=== PATIENT | female | born 1995 | race Caucasian/White ===

== ENCOUNTER → 2016-11-14 | Outpatient (CLI) | payer BC ==
--- NOTE | 2016-11-14 12:33 | DIAGNOSTIC IMAGING REPORT ---
BILATERAL LOWER EXTREMITY VENOUS DOPPLER CLINICAL HISTORY: Shortness of breath. COMPARISON STUDY: No previous studies for comparison. TECHNIQUE: Sonography of the deep venous system of the bilateral lower extremities was performed. Compression and augmentation were evaluated. FINDINGS: The bilateral common femoral, superficial femoral and popliteal veins were compressible. Augmentation was normal. Flow was shown within the deep calf vessels. IMPRESSION: No evidence of deep venous thrombus within the bilateral lower extremities. Electronically signed by: Aashish Galindo M.D. 11/14/2016 12:32 PM Dictated Date/Time: 11/14/2016 12:32 PM
--- NOTE | 2016-11-14 12:35 | DIAGNOSTIC IMAGING REPORT ---
CHEST 2 VIEWS ROUTINE CLINICAL HISTORY: Shortness of breath. COMPARISON STUDY: No previous studies for comparison. FINDINGS: Lung volumes are normal. No consolidation is identified. No pneumothorax or pleural effusion is identified. Cardiomediastinal silhouette is normal. Patient is mildly rotated. Pulmonary vascularity is normal. IMPRESSION: No acute cardiopulmonary findings. Electronically signed by: Aashish Galindo M.D. 11/14/2016 12:34 PM Dictated Date/Time: 11/14/2016 12:33 PM
== END | disposition home or self-care (01) ==
LOC: C.ULTR 11:44
PROVIDERS: ATTEND Family Medicine
DX: R06.02 Shortness of breath (principal)

== ENCOUNTER 2019-06-27 00:15 | Inpatient (IN) ==
[2019-06-27] MEDS ORDERED: OXYTOCIN 30 UNITS/500 ML BAG IV PRN ×2 (00:48→11:50)
[2019-06-27 01:10] LABS: Hematocrit (blood only) 34.6 % (37-47); Hemoglobin 11.5 g/dL (12.0-16.0); Mean Corpuscular Hemoglobin 30.8 pg (25-34); Mean Corpuscular Volume 92.8 fL (80-100); Mean Platelet Volume 11.6 fL (7.4-10.4); Platelet Count 189 K/uL (130-400); RDW Coefficient of Variation 15.6 % (11.5-14.5); RDW Standard Deviation 52.7 fL (36.4-46.3); Red Blood Count 3.73 M/uL (4.2-5.4); White Blood Count 12.75 K/uL (4.8-10.8)
[2019-06-27 01:26] LABS: Mean Corpuscular Hgb Conc 33.2 g/dL (32-36)
[2019-06-27] MEDS: LACTATED RINGER'S 1,000 ML IV PRN ×2 (01:42→03:28)
[2019-06-27] MEDS ORDERED: ePHEDrine sulfate 50 MG/ML AMP ONE (01:56)
[2019-06-27] MEDS ORDERED: BUPIVACAINE 0.25% 30 ML VIAL ONE ×2 (01:56→08:53)
[2019-06-27] MEDS ORDERED: fentaNYL citrate 100 MCG/2 ML VIAL ONE (01:56)
[2019-06-27] MEDS ORDERED: fentaNYL 2MCG/ML ROPIV 1.25MG/ML 100 ML BAG EPI ONE (01:57)
--- NOTE | 2019-06-27 02:08 | Obstetrical Progress Note ---
Date of Service June 27, 2019 Assessment & Plan Admission and Anticipated Discharge Date Admission Date: June 27, 2019 Physical Exam Physical Exam: Admit Note 23 F P0000 at 40.5 weeks admitted with SROM clear fluid. FHT Cat 1. BP 146/105. Cervix 3/50/-2/vertex. Patient requesting epidural. Constitutional: WD/WN, vitals as above comfortable will check pre- eclampsia labs GBS is negative Results & Data ([facility]) Vital Signs (Past 12 Hours) Vital Signs Temp Pulse Resp BP 06/27/19 02:01 86 146/105 H 06/27/19 01:51 82 175/107 H 06/27/19 01:21 91 H 150/106 H 06/27/19 01:11 84 154/100 H 06/27/19 01:01 85 151/101 H 06/27/19 00:50 81 154/105 H 06/27/19 00:40 90 150/105 H 06/27/19 00:30 102 H 142/102 H 06/27/19 00:26 36.9 C 87 18 166/99 H
[2019-06-27 02:45] LABS: Alanine Aminotransferase 15 U/L (12-78); Albumin Level 2.6 gm/dl (3.4-5.0); Aspartate Aminotransferase 14 U/L (15-37); BUN Creatinine Ratio 9.4 (10-20); Bilirubin Direct < 0.1 mg/dl (0-0.2); Blood Urea Nitrogen 8 mg/dl (7-18); Carbon Dioxide 24 mmol/L (21-32); Chloride 109 mmol/L (98-107); Creatinine Clr Calc Pharmacy 139.5 ml/min; Est GFR (African American) 119.5; Est GFR (Non-African American) 103.1; Glucose 90 mg/dl (70-99); Potassium 4.1 mmol/L (3.5-5.1); Sodium 138 mmol/L (136-145); Uric Acid 5.2 mg/dl (2.6-7.2)
[2019-06-27 02:48] LABS: Albumin Globulin Ratio 0.7 (0.9-2); Alkaline Phosphatase 154 U/L (45-117); Bilirubin,Total 0.2 mg/dl (0.2-1); Globulin 3.9 gm/dl (2.5-4.0); Total Protein 6.5 gm/dl (6.4-8.2)
[2019-06-27] MEDS ORDERED: DiphenhydrAMINE HCL 50 MG/ML VIAL IV PRN (02:53)
[2019-06-27] MEDS ORDERED: ePHEDrine sulfate 50 MG/ML AMP IV PRN (02:53)
[2019-06-27] MEDS ORDERED: NALBUPHINE HCL INJ 10 MG/ML AMP IV PRN (02:53)
[2019-06-27] MEDS ORDERED: NALOXONE HCL 1 MG in SODIUM CHLORIDE 0.9% 1000ML 1,000 ML IV PRN (02:53)
[2019-06-27] MEDS ORDERED: fentaNYL 2MCG/ML ROPIV 1.25MG/ML 100 ML BAG EPI PRN (02:53)
[2019-06-27] MEDS ORDERED: NALOXONE HCL 0.4 MG/1 ML VIAL/CARP IV PRN (02:53)
--- NOTE | 2019-06-27 02:53 | Anesthesiology Consultation ---
Date of Service June 27, 2019 Assessment & Plan (1) Encounter for pre-operative examination: Chart Review Chart Review: Patient NOT seen in Pre Admission Testing and Acceptable Risk for Labor Epidural Consults Requested none ASA ASA2 Proposed Anesthesia Anesthesia Type: Labor Epidural Risk / Benefits Reviewed With: PT / POA / Parent / Guardian, Accepts Plan and Informed Consent Obtained History Height/Weight Height: 5 ft 11 in Weight: 96.615 kg Allergies Allergy/AdvReac Type Severity Reaction Status Date / Time AMOXICILLIAN Allergy Mild rash Uncoded 06/27/19 00:36 Medications Home Medications Medication Instructions Recorded Confirmed Last Taken Fiber Smooth 1 ea PO DAILY 06/27/19 06/27/19 06/26/19 08:00 PNV cmb#95-ferrous fumarate-FA 1 tab PO DAILY 06/27/19 06/27/19 06/26/19 08:00 [] cranberry 125 mg PO DAILY 06/27/19 06/27/19 06/26/19 08:00 levocetirizine 1 mg PO DAILY 06/27/19 06/27/19 06/26/19 08:00 Active Medications Generic Name Dose Route Start Last Admin Trade Name Freq PRN Reason Stop Dose Admin Lactated Ringer's 1,000 mls @ 125 mls/hr 06/27/19 00:48 06/27/19 02:37 Lr IV 06/29/19 00:47 125 mls/hr .Q8H PRN Infusion L&D Protocol Protocol NPO Date Last Intake of Fluids: 06/27/19 Time Last Intake of Fluids: 01:00 Date Last Intake of Solids: 06/26/19 Time Last Intake of Solids: 19:30 Past Medical History Medical History Allergic rhinitis Bronchospasm, exercise-induced Chronic rhinitis Migraine Exercise / Class Metabolic Activity II 4-5 Yardwork/Stairs/Walk up hill Past Anesthesia History No Hx of Anesthesia Complications and No Family Hx of Anesthesia Complications History of PONV No Hx of PONV and No Hx of Motion Sickness Social History Smoking Status: Never smoker Hx Alcohol Use: No Hx Substance Use: No Physical Exam Vital Signs Last Vital Signs Temp 36.9 C 06/27/19 02:29 Pulse 81 06/27/19 02:48 Resp 18 03/19/20 00:26 BP 141/93 H 06/27/19 02:48 Pulse Ox 99 06/27/19 02:48 ENMT Mouth: no dentition abnormality Thyromental Distance: > or= 3.5 Finger Breadths Mallampati Class: II Neck normal visual inspection Respiratory normal respiratory effort Auscultation: lungs clear to auscultation bilaterally Cardiovascular Rate/Rhythm: regular rate and regular rhythm Psychiatric Orientation: alert Testing Laboratory Results 06/27/19 00:59 06/27/19 02:07
[2019-06-27] MEDS ORDERED: Nursing to Pharmacy Communication ONE ×2 (03:15→05:48)
[2019-06-27 03:19] LABS: Protein Creatinine Ratio Urine 0.6 (0-0.2); Total Protein Urine Random 80.1 mg/dl (0-11.9)
[2019-06-27] MEDS ORDERED: ONDANSETRON INJ 2 MG/ML 2 ML VIAL IV PRN (07:59)
--- NOTE | 2019-06-27 08:09 | Obstetrical Progress Note ---
Date of Service June 27, 2019 Assessment & Plan Admission and Anticipated Discharge Date Admission Date: June 27, 2019 Subjective Met pt and FOB FHR; CAT1 Ctx ; 2-4mins VE; 10/-1 Anticipate VD Results & Data ([facility]) Vital Signs (Past 12 Hours) Vital Signs Temp Pulse Resp BP Pulse Ox 06/27/19 07:58 94 H 97 06/27/19 07:55 87 151/98 H 06/27/19 07:53 95 H 98 06/27/19 07:48 96 H 96 06/27/19 07:43 84 99 06/27/19 07:41 83 154/90 H 06/27/19 07:38 82 96 06/27/19 07:33 87 94 06/27/19 07:28 94 H 97 06/27/19 07:25 86 131/104 H 06/27/19 07:23 97 H 97 06/27/19 07:21 101 H 90 06/27/19 07:18 92 H 96 06/27/19 07:13 86 97 06/27/19 07:10 89 142/90 H 06/27/19 07:08 84 98 06/27/19 07:07 36.8 C 20 06/27/19 07:06 84 92 06/27/19 07:03 86 98 06/27/19 07:01 18 06/27/19 06:58 82 97 06/27/19 06:55 82 138/73 06/27/19 06:53 89 97 06/27/19 06:48 89 97 06/27/19 06:43 85 96 06/27/19 06:42 83 140/79 06/27/19 06:41 86 94 06/27/19 06:38 82 97 06/27/19 06:33 81 97 06/27/19 06:28 81 96 06/27/19 06:27 82 93 06/27/19 06:25 78 133/80 06/27/19 06:23 80 96 06/27/19 06:21 18 06/27/19 06:18 81 97 06/27/19 06:16 93 H 92 06/27/19 06:13 79 97 06/27/19 06:11 79 131/74 06/27/19 06:08 82 97 06/27/19 06:04 96 H 91 06/27/19 06:03 91 H 96 06/27/19 06:01 18 06/27/19 05:58 85 97 06/27/19 05:56 79 126/90 06/27/19 05:53 83 97 06/27/19 05:48 81 97 06/27/19 05:45 18 06/27/19 05:43 82 96 06/27/19 05:40 36.9 C 84 18 137/75 06/27/19 05:38 88 98 06/27/19 05:33 98 H 97 06/27/19 05:28 87 97 06/27/19 05:24 90 157/89 H 06/27/19 05:23 79 97 06/27/19 05:18 83 97 06/27/19 05:13 103 H 97 06/27/19 05:10 96 H 141/98 H 06/27/19 05:08 90 97 06/27/19 05:03 96 H 96 06/27/19 05:00 18 06/27/19 04:58 86 97 06/27/19 04:55 90 142/92 H 06/27/19 04:53 81 97 06/27/19 04:48 81 99 06/27/19 04:45 18 06/27/19 04:43 88 99 06/27/19 04:39 96 H 151/92 H 06/27/19 04:38 83 98 06/27/19 04:33 78 98 06/27/19 04:28 76 98 06/27/19 04:26 75 158/98 H 06/27/19 04:23 79 99 06/27/19 04:21 36.9 C 86 18 156/92 H 06/27/19 04:18 75 98 06/27/19 04:13 77 98 06/27/19 04:11 77 167/100 H 06/27/19 04:08 77 98 06/27/19 04:03 77 98 06/27/19 04:00 18 06/27/19 03:58 82 99 06/27/19 03:56 78 143/96 H 06/27/19 03:53 84 99 06/27/19 03:48 94 H 98 06/27/19 03:45 18 06/27/19 03:43 88 98 06/27/19 03:41 94 H 121/77 03/19/20 03:38 76 98 06/26/20 03:33 78 100 20 03:30 18 20 03:28 103 H 99 20 03:25 83 133/69 20 03:23 82 100 20 03:18 84 98 06/27/19 03:15 18 06/27/19 03:13 79 100 06/27/19 03:09 80 131/85 06/27/19 03:08 93 H 100 06/27/19 03:04 95 H 154/73 H 06/27/19 03:03 83 100 06/27/19 03:00 18 06/27/19 02:59 78 136/81 06/27/19 02:58 76 100 06/27/19 02:55 18 06/27/19 02:54 73 137/80 06/27/19 02:53 85 99 06/27/19 02:50 18 06/27/19 02:48 81 141/93 H 99 06/27/19 02:46 91 H 138/85 06/27/19 02:45 18 06/27/19 02:44 86 148/95 H 06/27/19 02:43 78 98 06/27/19 02:42 77 163/79 H 06/27/19 02:40 85 18 160/79 H 06/27/19 02:38 80 95 06/27/19 02:34 91 H 86 L 06/27/19 02:33 95 H 99 06/27/19 02:31 87 190/101 H 06/27/19 02:29 36.9 C 06/27/19 02:22 82 143/98 H 06/27/19 02:12 74 162/105 H 06/27/19 02:01 86 146/105 H 20 01:51 82 175/107 H 20 01:21 91 H 150/106 H 20 01:11 84 154/100 H 20 01:01 85 151/101 H 06/27/19 00:50 81 154/105 H 20 00:40 90 150/105 H 20 00:30 102 H 142/102 H 06/27/19 00:26 36.9 C 87 18 166/99 H
--- NOTE | 2019-06-27 10:47 | Obstetrical Progress Note ---
Date of Service June 27, 2019 Assessment & Plan Admission and Anticipated Discharge Date Admission Date: June 27, 2019 Subjective Pt doing well Fully dilated /2+ Pushing effectively CAT1 Anticipate VD Results & Data ([facility]) Vital Signs (Past 12 Hours) Vital Signs Temp Pulse Resp BP Pulse Ox 06/27/19 10:43 89 99 06/27/19 10:40 91 H 141/99 H 06/27/19 10:38 91 H 100 06/27/19 10:36 88 91 06/27/19 10:33 105 H 91 06/27/19 10:30 109 H 89 L 06/27/19 10:28 92 H 97 06/27/19 10:24 89 134/76 06/27/19 10:23 98 H 86 L 06/27/19 10:18 98 H 95 06/27/19 10:13 114 H 98 06/27/19 10:11 99 H 94 06/27/19 10:08 94 H 96 06/27/19 10:05 106 H 91 06/27/19 10:03 96 H 99 06/27/19 10:00 100 H 93 06/27/19 09:58 95 H 133/78 99 06/27/19 09:54 92 H 90 06/27/19 09:53 85 99 06/27/19 09:48 84 97 06/27/19 09:43 87 99 06/27/19 09:39 83 121/72 06/27/19 09:38 85 98 06/27/19 09:36 89 93 06/27/19 09:33 78 98 06/27/19 09:28 78 95 06/27/19 09:27 81 94 06/27/19 09:24 81 134/75 06/27/19 09:23 79 97 06/27/19 09:18 87 98 06/27/19 09:13 85 97 06/27/19 09:10 84 128/68 06/27/19 09:08 88 95 06/27/19 09:05 86 93 06/27/19 09:03 85 96 06/27/19 09:02 36.8 C 20 06/27/19 08:59 86 94 06/27/19 08:58 84 95 06/27/19 08:54 88 142/83 H 06/27/19 08:53 84 96 03/19/20 08:50 92 H 92 19/20 08:48 87 97 19/20 08:43 84 96 19/20 08:41 86 145/76 H 19/20 08:38 90 96 19/20 08:37 87 94 19/20 08:33 90 97 19/20 08:29 90 94 19/20 08:28 81 97 19/20 08:25 88 155/95 H 1920 08:23 82 95 19/20 08:22 81 93 19/20 08:18 85 96 19/20 08:13 93 H 97 19/20 08:09 84 147/104 H 06/26/20 08:08 82 96 20 08:03 86 97 06/26/20 07:58 94 H 97 20 07:55 87 151/98 H 06/26/20 07:53 95 H 98 20 07:48 96 H 96 20 07:43 84 99 06/26/20 07:41 83 154/90 H 19/20 07:38 82 96 19/20 07:33 87 94 19/20 07:28 94 H 97 06/26/20 07:25 86 131/104 H 06/26/20 07:23 97 H 97 06/26/20 07:21 101 H 90 06/26/20 07:18 92 H 96 06/26/20 07:13 86 97 19/20 07:10 89 142/90 H 06/26/20 07:08 84 98 06/26/20 07:07 36.8 C 20 20 07:06 84 92 19/20 07:03 86 98 19/20 07:01 18 19/20 06:58 82 97 0319/20 06:55 82 138/73 19/20 06:53 89 97 19/20 06:48 89 97 19/20 06:43 85 96 19/20 06:42 83 140/79 0319/20 06:41 86 94 19/20 06:38 82 97 19/20 06:33 81 97 19/20 06:28 81 96 06/27/19 06:27 82 93 06/27/19 06:25 78 133/80 06/27/19 06:23 80 96 06/27/19 06:21 18 06/27/19 06:18 81 97 06/27/19 06:16 93 H 92 06/27/19 06:13 79 97 06/27/19 06:11 79 131/74 06/27/19 06:08 82 97 06/27/19 06:04 96 H 91 06/27/19 06:03 91 H 96 06/27/19 06:01 18 06/27/19 05:58 85 97 06/27/19 05:56 79 126/90 06/27/19 05:53 83 97 06/27/19 05:48 81 97 06/27/19 05:45 18 06/27/19 05:43 82 96 06/27/19 05:40 36.9 C 84 18 137/75 06/27/19 05:38 88 98 06/27/19 05:33 98 H 97 06/27/19 05:28 87 97 06/27/19 05:24 90 157/89 H 06/27/19 05:23 79 97 06/27/19 05:18 83 97 06/27/19 05:13 103 H 97 06/27/19 05:10 96 H 141/98 H 06/27/19 05:08 90 97 06/27/19 05:03 96 H 96 06/27/19 05:00 18 06/27/19 04:58 86 97 06/27/19 04:55 90 142/92 H 06/27/19 04:53 81 97 06/27/19 04:48 81 99 06/27/19 04:45 18 06/27/19 04:43 88 99 06/27/19 04:39 96 H 151/92 H 06/27/19 04:38 83 98 06/27/19 04:33 78 98 06/27/19 04:28 76 98 06/27/19 04:26 75 158/98 H 06/27/19 04:23 79 99 06/27/19 04:21 36.9 C 86 18 156/92 H 06/27/19 04:18 75 98 06/27/19 04:13 77 98 06/27/19 04:11 77 167/100 H 06/27/19 04:08 77 98 06/27/19 04:03 77 98 06/27/19 04:00 18 06/27/19 03:58 82 99 06/27/19 03:56 78 143/96 H 06/27/19 03:53 84 99 06/27/19 03:48 94 H 98 06/27/19 03:45 18 06/27/19 03:43 88 98 06/27/19 03:41 94 H 121/77 06/27/19 03:38 76 98 06/27/19 03:33 78 100 06/27/19 03:30 18 06/27/19 03:28 103 H 99 06/27/19 03:25 83 133/69 06/27/19 03:23 82 100 06/27/19 03:18 84 98 06/27/19 03:15 18 06/27/19 03:13 79 100 06/27/19 03:09 80 131/85 06/27/19 03:08 93 H 100 06/27/19 03:04 95 H 154/73 H 06/27/19 03:03 83 100 06/27/19 03:00 18 06/27/19 02:59 78 136/81 06/27/19 02:58 76 100 06/27/19 02:55 18 06/27/19 02:54 73 137/80 06/27/19 02:53 85 99 06/27/19 02:50 18 06/27/19 02:48 81 141/93 H 99 06/27/19 02:46 91 H 138/85 06/27/19 02:45 18 06/27/19 02:44 86 148/95 H 06/27/19 02:43 78 98 06/27/19 02:42 77 163/79 H 06/27/19 02:40 85 18 160/79 H 06/27/19 02:38 80 95 06/27/19 02:34 91 H 86 L 06/27/19 02:33 95 H 99 06/27/19 02:31 87 190/101 H 06/27/19 02:29 36.9 C 06/27/19 02:22 82 143/98 H 06/27/19 02:12 74 162/105 H 06/27/19 02:01 86 146/105 H 06/27/19 01:51 82 175/107 H 06/27/19 01:21 91 H 150/106 H 06/27/19 01:11 84 154/100 H 06/27/19 01:01 85 151/101 H 06/27/19 00:50 81 154/105 H 06/27/19 00:40 90 150/105 H 06/27/19 00:30 102 H 142/102 H 06/27/19 00:26 36.9 C 87 18 166/99 H
[2019-06-27] MEDS ORDERED: miSOPROStoL 200 MCG TAB ONE (11:20)
[2019-06-27] MEDS ORDERED: HYDROCORTISONE ACETATE 25 MG SUPP PR PRN (11:50)
[2019-06-27] MEDS ORDERED: bisacodyL 10 MG SUPP PR PRN (11:50)
[2019-06-27] MEDS ORDERED: miSOPROStoL 200 MCG TAB PR ONE (11:50)
[2019-06-27] MEDS ORDERED: SUPERCREAM 0.870% 15 GM JAR EXT PRN (11:50)
[2019-06-27] MEDS ORDERED: DIPHTHERIA/TETANUS/PERTUSSIS 0.5 ML SYR/VIAL IM ONE (11:50)
--- NOTE | 2019-06-27 12:09 | Delivery Summary ---
DATE OF OPERATION: 06/27/2019 The patient delivered a live infant in left occiput anterior presentation. There was loose nuchal cord which was easily reduced. Cord was clamped and cut after 1 minute. Cord blood was obtained. Placenta spontaneously delivered. Inspection of the perineum showed a second-degree midline laceration as well as a labial laceration tear on the right labia. Both are repaired with 2-0 and 3-0 respectively. There was good hemostasis post repair. Rectal exam post repair showed good sphincter tone, no sutures are palpated in the rectum. Estimated blood loss is 550 mL. Baby and mother are doing well in recovery. I attest to the content of the Intraoperative Record and any orders documented therein. Any exception s are noted below.
--- NOTE | 2019-06-27 12:18 | Anesthesia Procedure Note ---
Date of Service June 27, 2019 Anesthesia Post Epidural Note Vital Signs Vital Signs: Temp Pulse Resp BP Pulse Ox 36.8 C 97 H 20 135/88 100 06/27/19 09:02 06/27/19 12:09 06/27/19 09:02 06/27/19 12:09 06/27/19 11:08 Notes Mental Status: alert / awake / arousable and participated in evaluation Patient Amnestic to Procedure: No Nausea / Vomiting: adequately controlled Pain: adequately controlled Airway Patency, RR, SpO2: stable & adequate BP & HR: stable & adequate Hydration State: stable & adequate Neuraxial Anesthesia: was administered and sensory block is resolving Anesthetic Complications: no major complications apparent and Pt Satisfied with anesthetic care Epidural: Removed without complications and With tip intact
[2019-06-27] MEDS: IBUPROFEN 600 MG TAB PO PRN ×2 (15:59→19:58)
[2019-06-27] MEDS: BENZOCAINE 20% AER SPR 82.5 GM CAN EXT PRN (16:01)
[2019-06-27] MEDS: DOCUSATE SODIUM 100 MG CAP PO SCH (21:17)
[2019-06-27] MEDS ORDERED: COUGH DROP (SUGAR FREE) LOZ 24 LOZ/1 BOX BUCCAL ONE (23:19)
[2019-06-28] MEDS: IBUPROFEN 600 MG TAB PO PRN ×5 (00:16→17:54)
[2019-06-28] MEDS: DOCUSATE SODIUM 100 MG CAP PO SCH ×2 (07:33→21:06)
[2019-06-28] MEDS: PRENATAL VITAMIN 1 TAB PO SCH (07:33)
[2019-06-28] MEDS: FERROUS SULFATE 325 MG TAB PO SCH (07:33)
--- NOTE | 2019-06-28 10:05 | Obstetrical Progress Note ---
Date of Service June 28, 2019 Assessment & Plan Admission and Anticipated Discharge Date Admission Date: June 27, 2019 Subjective doing well passing gas natalya diet Physical Exam Constitutional: WD/WN, vitals as above comfortable no edema neg Bart's tent d/c in AM Results & Data ([facility]) Vital Signs (Past 12 Hours) Vital Signs Temp Pulse Pulse Resp BP BP Pulse Ox 06/28/19 07:51 36.8 C 76 18 131/89 151/97 H 96 06/28/19 03:15 36.7 C 74 18 130/84 06/28/19 00:10 36.8 C 73 20 128/88 Laboratory Results 06/27/19 06/27/19 06/27/19 00:59 01:55 02:07 WBC 12.75 H RBC 3.73 L Hgb 11.5 L Hct 34.6 L MCV 92.8 MCH 30.8 MCHC 33.2 RDW Std Deviation 52.7 H RDW Coeff of Anisa 15.6 H Plt Count 189 MPV 11.6 H Sodium 138 Potassium 4.1 Chloride 109 H Carbon Dioxide 24 Anion Gap 5.0 BUN 8 Creatinine 0.81 Est Cr Clr Drug Dosing 139.5 Est GFR ( Amer) 119.5 Est GFR (Non-Af Amer) 103.1 BUN/Creatinine Ratio 9.4 L Glucose 90 Uric Acid 5.2 Calcium 9.0 Total Bilirubin 0.2 Direct Bilirubin < 0.1 AST 14 L ALT 15 Alkaline Phosphatase 154 H Lactate Dehydrogenase Total Protein 6.5 Albumin 2.6 L Globulin 3.9 Albumin/Globulin Ratio 0.7 L Ur Random Creatinine 131.0 U Random Total Protein 80.1 H Protein/Creatinin Ratio 0.6 H 06/27/19 02:07 WBC RBC Hgb Hct MCV MCH MCHC RDW Std Deviation RDW Coeff of Anisa Plt Count MPV Sodium Potassium Chloride Carbon Dioxide Anion Gap BUN Creatinine Est Cr Clr Drug Dosing Est GFR ( Amer) Est GFR (Non-Af Amer) BUN/Creatinine Ratio Glucose Uric Acid Calcium Total Bilirubin Direct Bilirubin AST ALT Alkaline Phosphatase Lactate Dehydrogenase 156 Total Protein Albumin Globulin Albumin/Globulin Ratio Ur Random Creatinine U Random Total Protein Protein/Creatinin Ratio
[2019-06-28] MEDS: ACETAMINOPHEN 325 MG TAB PO PRN ×2 (15:23→21:05)
[2019-06-28] MEDS ORDERED: bisacodyL 5 MG TABEC PO SCH (20:00)
[2019-06-28] MEDS: LABETALOL HCL 100 MG TAB PO SCH (21:11)
[2019-06-28] MEDS ORDERED: LABETALOL HCL 100 MG TAB PO ONE (21:17)
[2019-06-29] MEDS: IBUPROFEN 600 MG TAB PO PRN ×4 (04:06→20:40)
--- NOTE | 2019-06-29 07:28 | Obstetrical Progress Note ---
Date of Service June 29, 2019 Assessment & Plan Admission and Anticipated Discharge Date Admission Date: June 27, 2019 Subjective doing well ambulating well tolerating diet passing gas Physical Exam Constitutional: WD/WN, vitals as above comfortable abdomen soft and non- tender no edema neg Bart's Results & Data ([facility]) Vital Signs (Past 12 Hours) Vital Signs Temp Pulse Pulse Resp BP BP Pulse Ox 06/29/19 04:45 36.7 C 68 16 133/84 99 06/29/19 04:00 158/95 H 06/28/19 23:00 36.8 C 69 18 136/92 97 06/28/19 22:30 65 158/97 H 06/28/19 20:45 37.2 C 64 18 156/104 H 158/105 H 97 Laboratory Results Laboratory Results - last 72 hr 06/27/19 06/27/19 06/27/19 00:59 01:55 02:07 WBC 12.75 H RBC 3.73 L Hgb 11.5 L Hct 34.6 L MCV 92.8 MCH 30.8 MCHC 33.2 RDW Std Deviation 52.7 H RDW Coeff of Anisa 15.6 H Plt Count 189 MPV 11.6 H Sodium 138 Potassium 4.1 Chloride 109 H Carbon Dioxide 24 Anion Gap 5.0 BUN 8 Creatinine 0.81 Est Cr Clr Drug Dosing 139.5 Est GFR ( Amer) 119.5 Est GFR (Non-Af Amer) 103.1 BUN/Creatinine Ratio 9.4 L Glucose 90 Uric Acid 5.2 Calcium 9.0 Total Bilirubin 0.2 Direct Bilirubin < 0.1 AST 14 L ALT 15 Alkaline Phosphatase 154 H Lactate Dehydrogenase Total Protein 6.5 Albumin 2.6 L Globulin 3.9 Albumin/Globulin Ratio 0.7 L Ur Random Creatinine 131.0 U Random Total Protein 80.1 H Protein/Creatinin Ratio 0.6 H 06/27/19 02:07 WBC RBC Hgb Hct MCV MCH MCHC RDW Std Deviation RDW Coeff of Anisa Plt Count MPV Sodium Potassium Chloride Carbon Dioxide Anion Gap BUN Creatinine Est Cr Clr Drug Dosing Est GFR ( Amer) Est GFR (Non-Af Amer) BUN/Creatinine Ratio Glucose Uric Acid Calcium Total Bilirubin Direct Bilirubin AST ALT Alkaline Phosphatase Lactate Dehydrogenase 156 Total Protein Albumin Globulin Albumin/Globulin Ratio Ur Random Creatinine U Random Total Protein Protein/Creatinin Ratio
[2019-06-29] MEDS: DOCUSATE SODIUM 100 MG CAP PO SCH ×2 (08:25→20:40)
[2019-06-29] MEDS: PRENATAL VITAMIN 1 TAB PO SCH (08:25)
[2019-06-29] MEDS: FERROUS SULFATE 325 MG TAB PO SCH (08:25)
[2019-06-29] MEDS: LABETALOL HCL 100 MG TAB PO SCH (08:26)
[2019-06-29] MEDS ORDERED: LABETALOL HCL 100 MG TAB PO ONE (10:31)
[2019-06-29 11:04] LABS: Basophils # (auto) 0.01 K/uL (0-0.2); Basophils % (auto) 0.1 %; Eosinophils # (auto) 0.05 K/uL (0-0.5); Eosinophils % (auto) 0.5 %; Hematocrit (blood only) 30.1 % (37-47); Hemoglobin 9.9 g/dL (12.0-16.0); Immature Granulocytes # (auto) 0.02 K/uL (0.00-0.02); Immature Granulocytes % (auto) 0.2 %; Lymphocytes # (auto) 1.65 K/uL (1.2-3.4); Lymphocytes % (auto) 16.8 %; Mean Corpuscular Hemoglobin 30.6 pg (25-34); Mean Corpuscular Volume 92.9 fL (80-100); Mean Platelet Volume 10.8 fL (7.4-10.4); Monocytes # (auto) 0.49 K/uL (0.11-0.59); Neutrophils # (auto) 7.58 K/uL (1.4-6.5); Neutrophils % (auto) 77.4 %; Platelet Count 158 K/uL (130-400); RDW Coefficient of Variation 15.9 % (11.5-14.5); Red Blood Count 3.24 M/uL (4.2-5.4)
[2019-06-29 11:09] LABS: Mean Corpuscular Hgb Conc 32.9 g/dL (32-36)
[2019-06-29 11:32] LABS: Albumin Level 2.3 gm/dl (3.4-5.0); BUN Creatinine Ratio 11.8 (10-20); Calcium 8.9 mg/dl (8.5-10.1); Creatinine Clr Calc Pharmacy 166.2 ml/min; Est GFR (African American) 143.9; Est GFR (Non-African American) 124.2; Potassium 4.4 mmol/L (3.5-5.1)
[2019-06-29 11:35] LABS: Albumin Globulin Ratio 0.7 (0.9-2); Bilirubin,Total 0.3 mg/dl (0.2-1); Globulin 3.4 gm/dl (2.5-4.0); Total Protein 5.7 gm/dl (6.4-8.2)
--- NOTE | 2019-06-29 13:32 | Obstetrical Progress Note ---
Date of Service June 29, 2019 Assessment & Plan Admission and Anticipated Discharge Date Admission Date: June 27, 2019 Subjective Pt doing well BP remains elevated on labetalol 100mg. denies headache, SOB,RUQ pain PIH labs -Nml Plan Cancelled disch Inc labetalol to 200mg BID discussed plan with pt'pt agrees Results & Data ([facility]) Vital Signs (Past 12 Hours) Vital Signs Temp Pulse Pulse Resp BP BP Pulse Ox 06/29/19 12:55 69 153/100 H 06/29/19 10:20 162/111 H 153/107 H 06/29/19 08:00 36.8 C 79 20 156/96 H 06/29/19 04:45 36.7 C 68 16 133/84 99 06/29/19 04:00 158/95 H
[2019-06-29] MEDS: NIFEdipine 10 MG CAP PO SCH ×2 (17:56→20:39)
[2019-06-29] MEDS: LABETALOL HCL 200 MG TAB PO SCH (20:40)
[2019-06-30] MEDS: NIFEdipine 10 MG CAP PO SCH ×3 (00:32→08:08)
[2019-06-30] MEDS: IBUPROFEN 600 MG TAB PO PRN (00:32)
[2019-06-30] MEDS: ACETAMINOPHEN 325 MG TAB PO PRN (08:08)
[2019-06-30] MEDS: PRENATAL VITAMIN 1 TAB PO SCH (08:08)
[2019-06-30] MEDS: DOCUSATE SODIUM 100 MG CAP PO SCH (08:08)
[2019-06-30] MEDS: FERROUS SULFATE 325 MG TAB PO SCH (08:08)
--- NOTE | 2019-06-30 08:12 | Consultation ---
Date of Consultation June 30, 2019 Assessment & Plan (1) hypertension: Likely due to hospital setting, anxiety or NSAID use Pt BP well controlled outpt Labs reviewed, LFT, plt, renal fxn, LDH WNL pt asymptomatic agree with labetalol and Procardia per OB recommend continue labetolol 200mg BID Change Procardia to XL at discharge 30mg daily hold parameters of SBP < 130 and HR < 60 would limit NSAID use as much as possible, use APAP instead close follow up with PCP to determine necessity of nursing home antihypertensive med (2) Chronic rhinitis: spoke to Dr. Ashton recommends claritin daily Disposition: medically stable from our end to D/C to home today Follow up: PCP Dr. Mesa upon discharge as well as approp OB follow up Pt was seen and examined in collaboration with Dr. Jamison, please see addendum Thank you for this consultation. We will follow the patient with you during their hospital stay. You can reach a member of the [facility] 31/10 via pager @ [phone]. Supervising Physician Co-Signing Physician Notes Attending addendum Patient was seen and examined in [facility] unit She is status post normal delivery on of this month and noted to have high blood pressure and was admitted 04/30 of this month She denies any symptoms related to high blood pressure She has been feeling fine during examination On examination No distress at rest Hemodynamically stable with blood pressure noted 135/82 at 4:20 AM Chest-clear to auscultate bilaterally Heart-S1-S2, no murmur Abdomen-distended, soft, bowel sounds present Extremities-trace to no edema 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 Ashton Reason for Consultation: hypertension Attending Physician: Oscar Morales MD History of Present Illness This is a 22-year-old female who has a significant past medical history of chronic rhinitis and migraines who underwent vaginal delivery on 06/27/2019. She tolerated the procedure well with an EBL of 550 mL. We have been consulted for hypertension. Currently she denies any headache, visual changes, dizziness, chest pain, shortness of breath. Approximately 2 days ago she did admit to having fluttering and overall feeling anxious after the administration of labetalol. She denies any prior history of hypertension. This is her first delivery. She further denies any fever, chills, sweats, syncope, nausea, vomiting, abdominal pain. She does have mild cramping for which she is taking NSAID for. She is having mild dysuria as well as blood in urine secondary to . Moving her bowels without difficulty. Blood pressures have been elevated since admission. On 06/28 she had pressures as high as 172/115. She has been asymptomatic. Dr. Ashton started labetalol 100 mg without relief. It was increased to 200 mg twice daily. Due to no significant improvement with Procardia was added every 4 hours. During my evaluation her blood pressure was 150 systolically over 98. She had lab work drawn yesterday which revealed H&H 9.9 and 30.1, JVC 9.80, platelet 158, CMP relatively unremarkable including normal LFTs, LDH. Her only other complaint right now is having allergy-like symptoms with sinus congestion and rhinorrhea. She denies cough. She chronically takes levocetirizine at HS but is requesting something additional. Allergies Allergy/AdvReac Type Severity Reaction Status Date / Time amoxicillin Allergy Mild Rash Verified 06/27/19 08:10 Home Medications Home Medications Medication Instructions Recorded Confirmed Type Fiber Smooth 1 ea PO DAILY 06/27/19 06/27/19 History PNV cmb#95-ferrous fumarate-FA 1 tab PO DAILY 06/27/19 06/27/19 History [] cranberry 125 mg PO DAILY 06/27/19 06/27/19 History levocetirizine 1 mg PO DAILY 06/27/19 06/27/19 History ibuprofen 600 mg PO Q4H #30 tab 06/29/19 Rx labetalol 100 mg PO BID #30 tab 06/29/19 Rx labetalol 200 mg PO BID #30 tab 06/30/19 Rx nifedipine [Procardia XL] 30 mg PO DAILY #30 tab 06/30/19 Rx Patient History Medical History (Updated 06/30/19 @ 08:21 by Bindu Tate PA-C) Allergic rhinitis Bronchospasm, exercise-induced Chronic rhinitis Migraine Surgical History (Updated 06/30/19 @ 08:19 by Bindu Tate PA-C) History of wisdom tooth extraction Hx of arthroscopic knee surgery Family History Uncle Myocardial infarction, Onset Age: 41 Diabetes Mother Cervical ca Social History Preferred Language: [place]orese Communication Ability: Effective Glove Cleaner Required: No Beliefs That Will Affect Care: None marital status: Current Living Situation: Spouse Other Information That Helps Us Care for You: No Feels Safe at Home: Yes Safety Concerns: Feels Safe At This Time Smoking Status: Never smoker Hx Alcohol Use: No Hx Substance Use: No Review of Systems Review of Systems: All systems reviewed & are unremarkable except as noted in HPI & below Physical Exam 2 Physical Exam: Constitutional: WD/WN, vitals as above, NAD, sitting up in bed, pleasant, conversing easily Head: Normocephalic, Atraumatic Eyes: PERRL, conjunctivae normal, anicteric sclerae ENMT: external ear and nose normal, oropharynx normal Neck: trachea midline, no thyromegaly normal visual inspection Respiratory: normal respiratory effort, lungs clear to auscultation, no wheeze, rales, rhonchi. Normal insp/exp effort, no accessory muscle use Cardiovascular: RRR, no murmur, no edema Vessels: no JVD or carotid bruit Chest: normal inspection of chest Abdomen: Striae noted on lower abdomen, normal bowel sounds, soft, nontender, no hepatosplenomegaly Musculoskeletal: no cyanosis or clubbing, extremities motor strength 5/5 Skin: no rashes, warm and dry normal turgor Neurologic: PERRL, EOMI, accommodation nl, no face palsy, no dysarthria CN's II-XI intact bilaterally and moves all extremities Psychiatric: A+Ox3, euthymic affect Lymphatic: no cervical or axillary lymphadenopathy : deferred Results & Data ([facility]) Vital Signs (Past 12 Hours) Vital Signs Temp Pulse Pulse Resp BP BP Pulse Ox 06/30/19 04:20 71 135/82 06/30/19 00:30 62 147/90 H 06/29/19 23:15 36.6 C 65 18 153/94 H 98 03/21/20 22:00 150/98 H 06/29/19 20:40 65 69 164/105 H 172/115 H Laboratory Results Short CBC 06/29/19 Range/Units 10:47 WBC 9.80 (4.8-10.8) K/uL Hgb 9.9 L (12.0-16.0) g/dL Hct 30.1 L (37-47) % Plt Count 158 (130-400) K/uL BMP 06/29/19 10:47 Sodium 141 Potassium 4.4 Chloride 110 H Carbon Dioxide 27 BUN 8 Creatinine 0.68 Glucose 71 Calcium 8.9 Liver Function 06/29/19 Range/Units 10:47 Total Bilirubin 0.3 (0.2-1) mg/dl AST 22 (15-37) U/L ALT 17 (12-78) U/L Alkaline Phosphatase 101 (45-117) U/L Albumin 2.3 L (3.4-5.0) gm/dl Medications Administered Acetaminophen (Tylenol) 650 mg PO Q6H PRN PRN Reason: Pain/VILLANUEVA/Fever Stop: 07/27/19 11:49 Last Admin: 06/30/19 08:08 Dose: 650 mg Documented by: [id number] Admin: 06/28/19 21:05 Dose: 650 mg Documented by: [id number] Admin: 06/28/19 15:23 Dose: 650 mg Documented by: [id number] Benzocaine (Dermoplast Pain Relieving [place]) 1 appln EXT PRN PRN PRN Reason: Perineal Discomfort Stop: 07/27/19 11:49 Last Admin: 06/27/19 16:01 Dose: 1 appln Documented by: [id number] Cocaine HCl (Supercream 0.870%) 1 gm EXT BID PRN PRN Reason: Hemorrhoidal Inflammation Stop: 07/11/19 11:49 Last Admin: 06/27/19 16:00 Dose: 1 gm Documented by: [id number] Docusate Sodium (Colace) 100 mg PO DAILY@,21 ANABELLA Stop: 07/27/19 20:59 Last Admin: 06/30/19 08:08 Dose: 100 mg Documented by: [id number] Admin: 06/29/19 20:40 Dose: 100 mg Documented by: [id number] Admin: 06/29/19 08:25 Dose: 100 mg Documented by: [id number] Admin: 06/28/19 21:06 Dose: 100 mg Documented by: [id number] Admin: 06/28/19 07:33 Dose: 100 mg Documented by: [id number] Admin: 06/27/19 21:17 Dose: 100 mg Documented by: [id number] Ferrous Sulfate (Feosol) 325 mg PO DAILY@08 ANABELLA Stop: 07/28/19 07:59 Last Admin: 06/30/19 08:08 Dose: 325 mg Documented by: [id number] Admin: 06/29/19 08:25 Dose: 325 mg Documented by: [id number] Admin: 06/28/19 07:33 Dose: 325 mg Documented by: [id number] Oxytocin (Pitocin) 30 units in 500 mls @ 333.333 mls/hr IV .Q1H30M PRN; Protocol PRN Reason: Bleeding Control Stop: 07/27/19 00:47 Last Admin: 06/27/19 11:20 Dose: 59.94 units/hr, 999 mls/hr Documented by: [id number] Cosigned by: [id number] Ibuprofen (Motrin) 600 mg PO Q4H PRN PRN Reason: Pain/VILLANUEVA/Cramping/Fever Stop: 07/27/19 11:49 Last Admin: 06/30/19 00:32 Dose: 600 mg Documented by: [id number] Admin: 06/29/19 20:40 Dose: 600 mg Documented by: [id number] Admin: 06/29/19 15:27 Dose: 600 mg Documented by: [id number] Admin: 06/29/19 08:24 Dose: 600 mg Documented by: [id number] Admin: 06/29/19 04:06 Dose: 600 mg Documented by: [id number] Admin: 06/28/19 17:54 Dose: 600 mg Documented by: [id number] Admin: 06/28/19 12:36 Dose: 600 mg Documented by: [id number] Admin: 06/28/19 07:33 Dose: 600 mg Documented by: [id number] Admin: 06/28/19 04:07 Dose: 600 mg Documented by: [id number] Admin: 06/28/19 00:16 Dose: 600 mg Documented by: [id number] Admin: 06/27/19 19:58 Dose: 600 mg Documented by: [id number] Admin: 06/27/19 15:59 Dose: 600 mg Documented by: [id number] Labetalol HCl (Normodyne) 200 mg PO BID [facility] Stop: 07/29/19 20:59 Last Admin: 06/29/19 20:40 Dose: 200 mg Documented by: [id number] Nifedipine (Procardia) 10 mg PO Q4 [facility] Stop: 07/29/19 16:59 Last Admin: 06/30/19 08:08 Dose: 10 mg Documented by: [id number] Admin: 06/30/19 04:29 Dose: 10 mg Documented by: [id number] Admin: 06/30/19 00:32 Dose: 10 mg Documented by: [id number] Admin: 06/29/19 20:39 Dose: 10 mg Documented by: [id number] Admin: 06/29/19 17:56 Dose: Not Given Documented by: [id number] Prenat Multivit/Bertha/Iron/Folic Ac ( Vitamin) 1 tab PO DAILY@08 [facility] Stop: 07/28/19 07:59 Last Admin: 06/30/19 08:08 Dose: 1 tab Documented by: [id number] Admin: 06/29/19 08:25 Dose: 1 tab Documented by: [id number] Admin: 06/28/19 07:33 Dose: 1 tab Documented by: [id number] Discontinued Medications Bisacodyl (Dulcolax) 5 mg PO 1999 [facility] Stop: 06/28/19 20:01 Last Admin: 06/28/19 21:06 Dose: 5 mg Documented by: [id number] Bupivacaine HCl (Sensorcaine 0.25% Inj) Confirm Administered Dose 30 ml .ROUTE .STK-MED ONE Stop: 06/27/19 01:57 Last Admin: 06/27/19 02:48 Dose: 30 ml Documented by: [id number] Bupivacaine HCl (Sensorcaine 0.25% Inj) Confirm Administered Dose 30 ml .ROUTE .STK-MED ONE Stop: 06/27/19 08:54 Last Admin: 06/27/19 16:10 Dose: 30 ml Documented by: [id number] Ephedrine Sulfate (Ephedrine Sulfate) Confirm Administered Dose 50 mg .ROUTE .STK-MED ONE Stop: 06/27/19 01:57 Last Admin: 06/27/19 03:29 Dose: Not Given Documented by: [id number] Fentanyl Citrate (Fentanyl Citrate) Confirm Administered Dose 100 mcg .ROUTE .STK-MED ONE Stop: 06/27/19 01:57 Last Admin: 06/27/19 03:34 Dose: Not Given Documented by: [id number] Lactated Ringer's (Lr) 1,000 mls @ 125 mls/hr IV .Q8H PRN; Protocol PRN Reason: L&D Protocol Stop: 06/29/19 00:47 Last Admin: 06/27/19 03:28 Dose: 125 mls/hr Documented by: [id number] Infusion: 06/27/19 03:18 Dose: 125 mls/hr Documented by: [id number] Infusion: 06/27/19 02:37 Dose: 125 mls/hr Documented by: [id number] Admin: 06/27/19 01:42 Dose: 999 mls/hr Documented by: [id number] Labetalol HCl (Normodyne) 100 mg PO BID ANABELLA Stop: 07/28/19 20:59 Last Admin: 06/29/19 08:26 Dose: 100 mg Documented by: [id number] Admin: 06/28/19 21:11 Dose: 100 mg Documented by: [id number] Labetalol HCl (Normodyne) 100 mg PO NOW ONE Stop: 06/28/19 21:18 Last Admin: 06/28/19 21:36 Dose: 100 mg Documented by: [id number] Labetalol HCl (Normodyne) 100 mg PO NOW ONE Stop: 06/29/19 10:32 Last Admin: 06/29/19 11:21 Dose: 100 mg Documented by: [id number] Misoprostol (Cytotec) Confirm Administered Dose 1,000 mcg .ROUTE .STK-MED ONE Stop: 06/27/19 11:21 Last Admin: 06/27/19 11:44 Dose: 1,000 mcg Documented by: [id number] Ropivacaine (Epidural (L&D)) Confirm Administered Dose 100 ml EPI .STK-MED ONE Stop: 06/27/19 01:58 Last Admin: 06/27/19 02:39 Dose: 100 mg Documented by: [id number] Cosigned by: [id number] Ropivacaine (Epidural (L&D)) 100 ml EPI PRN PRN; Protocol PRN Reason: Pain R/T Labor Stop: 06/28/19 02:52 Last Admin: 06/27/19 08:12 Dose: 100 ml Documented by: [id number] Cosigned by: [id number]
[2019-06-30] MEDS ORDERED: LORATADINE 10 MG TAB PO ONE (08:26)
[2019-06-30] MEDS ORDERED: IBUPROFEN 600 MG TAB PO PRN (08:30)
[2019-06-30] MEDS: LABETALOL HCL 200 MG TAB PO SCH (09:22)
[2019-06-30] MEDS: BENZOCAINE 20% AER SPR 82.5 GM CAN EXT PRN (09:23)
--- NOTE | 2019-06-30 11:05 | Obstetrical Progress Note ---
Date of Service June 30, 2019 Assessment & Plan Admission and Anticipated Discharge Date Admission Date: June 27, 2019 Subjective doing well passing gas tolerating diet ambulating well Physical Exam Constitutional: WD/WN, vitals as above comfortable abdomen soft and non- tender no edema neg [facility]'s for d/c Results & Data ([facility]) Vital Signs (Past 12 Hours) Vital Signs Temp Pulse Pulse Resp BP BP Pulse Ox 06/30/19 04:20 71 135/82 06/30/19 00:30 62 147/90 H 06/29/19 23:15 36.6 C 65 18 153/94 H 98 Laboratory Results 06/27/19 06/27/19 06/27/19 00:59 01:55 02:07 WBC 12.75 H RBC 3.73 L Hgb 11.5 L Hct 34.6 L MCV 92.8 MCH 30.8 MCHC 33.2 RDW Std Deviation 52.7 H RDW Coeff of Anisa 15.6 H Plt Count 189 MPV 11.6 H Immature Gran % (Auto) Neut % (Auto) Lymph % (Auto) [place] % (Auto) Eos % (Auto) Baso % (Auto) Immature Gran # (Auto) Neut # (Auto) Lymph # (Auto) [place] # (Auto) Eos # (Auto) Baso # (Auto) Sodium 138 Potassium 4.1 Chloride 109 H Carbon Dioxide 24 Anion Gap 5.0 BUN 8 Creatinine 0.81 Est Cr Clr Drug Dosing 139.5 Est GFR ( Amer) 119.5 Est GFR (Non-Af Amer) 103.1 BUN/Creatinine Ratio 9.4 L Glucose 90 Uric Acid 5.2 Calcium 9.0 Total Bilirubin 0.2 Direct Bilirubin < 0.1 AST 14 L ALT 15 Alkaline Phosphatase 154 H Lactate Dehydrogenase Total Protein 6.5 Albumin 2.6 L Globulin 3.9 Albumin/Globulin Ratio 0.7 L Ur Random Creatinine 131.0 U Random Total Protein 80.1 H Protein/Creatinin Ratio 0.6 H 06/27/19 06/29/19 06/29/19 02:07 10:47 10:47 WBC 9.80 RBC 3.24 L Hgb 9.9 L Hct 30.1 L MCV 92.9 MCH 30.6 MCHC 32.9 RDW Std Deviation 54.0 H RDW Coeff of Anisa 15.9 H Plt Count 158 MPV 10.8 H Immature Gran % (Auto) 0.2 Neut % (Auto) 77.4 Lymph % (Auto) 16.8 [place] % (Auto) 5.0 Eos % (Auto) 0.5 Baso % (Auto) 0.1 Immature Gran # (Auto) 0.02 Neut # (Auto) 7.58 H Lymph # (Auto) 1.65 [place] # (Auto) 0.49 Eos # (Auto) 0.05 Baso # (Auto) 0.01 Sodium 141 Potassium 4.4 Chloride 110 H Carbon Dioxide 27 Anion Gap 4.0 BUN 8 Creatinine 0.68 Est Cr Clr Drug Dosing 166.2 Est GFR ( Amer) 143.9 Est GFR (Non-Af Amer) 124.2 BUN/Creatinine Ratio 11.8 Glucose 71 Uric Acid Calcium 8.9 Total Bilirubin 0.3 Direct Bilirubin AST 22 ALT 17 Alkaline Phosphatase 101 Lactate Dehydrogenase 156 Total Protein 5.7 L Albumin 2.3 L Globulin 3.4 Albumin/Globulin Ratio 0.7 L Ur Random Creatinine U Random Total Protein Protein/Creatinin Ratio 06/29/19 10:47 WBC RBC Hgb Hct MCV MCH MCHC RDW Std Deviation RDW Coeff of Anisa Plt Count MPV Immature Gran % (Auto) Neut % (Auto) Lymph % (Auto) [place] % (Auto) Eos % (Auto) Baso % (Auto) Immature Gran # (Auto) Neut # (Auto) Lymph # (Auto) [place] # (Auto) Eos # (Auto) Baso # (Auto) Sodium Potassium Chloride Carbon Dioxide Anion Gap BUN Creatinine Est Cr Clr Drug Dosing Est GFR ( Amer) Est GFR (Non-Af Amer) BUN/Creatinine Ratio Glucose Uric Acid Calcium Total Bilirubin Direct Bilirubin AST ALT Alkaline Phosphatase Lactate Dehydrogenase 243 Total Protein Albumin Globulin Albumin/Globulin Ratio Ur Random Creatinine U Random Total Protein Protein/Creatinin Ratio
== END 2019-06-30 12:30 | disposition home or self-care (01) | DRG 807 ==
LOC: 4S1 00:15 → UNDODISIN 12:20 → 4S2 16:06

== ENCOUNTER 2021-10-14 07:32 | Inpatient (IN) ==
[2021-10-14] MEDS ORDERED: OXYTOCIN 30 UNITS/500 ML BAG IV PRN ×3 (08:16→17:06)
[2021-10-14] MEDS ORDERED: ONDANSETRON INJ 2 MG/ML 2 ML VIAL IV PRN ×2 (08:16→12:39)
--- NOTE | 2021-10-14 08:23 | History & Physical Report ---
Date of Service October 14, 2021 Assessment & Plan (1) Post-term , 40-42 weeks of gestation: Plan: 36-year-old -0-0-1 at 40 weeks and 6 days of gestation presenting today for induction of labor, Vital signs stable afebrile, No complaints, Heart rate reassuring, GBS negative, Cervix favorable, Plan to admit, monitor, labs, oxytocin per protocol, All questions were answered. Admission and Anticipated Discharge Date Admission Date: October 14, 2021 History of Present Illness Primary Care Provider: Candida Ross PA-C Patient is a 26-year-old -0-0-1 at 40 weeks and 6 days of gestation who was scheduled for induction of labor at term. She has no complaints other than jeannie ng slightly nervous. Patient denies contractions, leakage of fluid, vaginal bleeding. She reports good movements. She denies headaches, change in her vision, nausea vomiting, epigastric or right upper quadrant pain. Her has been uncomplicated, She has a history of asthma but has not used an inhaler since teenager years. It used to be exercise-induced. sHe has history of migraines. She denies any other medical problems. GBS negative Allergies Allergy/AdvReac Type Severity Reaction Status Date / Time amoxicillin Allergy Mild Rash Verified 06/27/19 08:10 Home Medications Medication Instructions Recorded Confirmed Type cranberry 125 mg PO DAILY 06/27/19 10/14/21 History vit no.95-ferrous 1 tab PO DAILY 06/27/19 10/14/21 History fumarate 28 mg-folic acid 800 mcg tablet () psyllium (Fiber Smooth) 1 ea PO DAILY 06/27/19 10/14/21 History calcium carbonate 500 mg calcium 500 mg PO TID 10/14/21 10/14/21 History (1,250 mg) chewable tablet docusate sodium 100 mg capsule 100 mg PO DAILY 10/14/21 10/14/21 History (Colace) famotidine 20 mg tablet (Pepcid) 20 mg PO DAILY 10/14/21 10/14/21 History ferrous sulfate 325 mg (65 mg 325 mg PO DAILY 10/14/21 10/14/21 History iron) tablet (iron) Patient History Medical History Allergic rhinitis Bronchospasm, exercise-induced Chronic rhinitis Migraine Surgical History History of wisdom tooth extraction Hx of arthroscopic knee surgery Family History Uncle Diabetes Myocardial infarction, Onset Age: 41 Mother Cervical ca Uncle Skin cancer Social History Smoking Status: Never smoker Hx Alcohol Use: No Hx Substance Use: No Preferred Language: Yakut Communication Ability: Effective 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 ELDERLY COMPANION History Denies any history of STDs, no history of herpes, chlamydia, gonorrhea. Review of Systems as per Subjective / HPI Physical Exam Constitutional: WD/WN, vitals as above well developed and well nourished Comfortable and happy Gastrointestinal (Abdomen): normal bowel sounds, soft, nontender, no hepatosplenomegaly (Gravid, Andreas 8 pounds) Genitourinary: normal external appearance OB Exam Abdomen: + vertex Manual OB Exam: + cervical dilation 3 cm, + cervical effacement 30% and + station high OB Exam Monitor Tracing: + external uterine monitor used and + category I Results & Data ([facility]) Vital Signs (Past 12 Hours) Vital Signs Temp Pulse Resp BP 10/14/21 07:55 112 H 134/92 10/14/21 07:39 37.1 C 142 H 20 121/84
[2021-10-14 08:47] LABS: Hematocrit (blood only) 39.4 % (34.1-44.9); Hemoglobin 13.3 g/dl (12.0-16.0); Mean Corpuscular Hemoglobin 31.1 pg (25.0-34.0); Mean Corpuscular Hgb Conc 33.8 g/dL (32.0-36.0); Mean Corpuscular Volume 92.3 fL (80.0-100.0); Mean Platelet Volume 11.3 fL (9.4-12.3); Platelet Count 177 K/uL (130-400); RDW Coefficient of Variation 13.2 % (11.5-14.5); RDW Standard Deviation 43.7 fL (36.4-46.3); Red Blood Count 4.27 M/uL (3.93-5.22)
[2021-10-14 09:04] LABS: Alanine Aminotransferase 8 U/L (7-52); Albumin Globulin Ratio 1.2 (0.9-2); Albumin Level 3.4 gm/dl (3.4-5.0); Alkaline Phosphatase 145 U/L (34-104); Anion Gap 8 (3-11); Aspartate Aminotransferase 13 U/L (13-39); BUN Creatinine Ratio 6.8 (10-20); Bilirubin,Total 0.3 mg/dl (0.2-1.0); Blood Urea Nitrogen 4 mg/dl (6-23); Calcium 8.8 mg/dl (8.5-10.1); Carbon Dioxide 22 mmol/L (21-32); Chloride 105 mmol/L (98-107); Est GFR (African American) 147.6 ml/min; Est GFR (Non-African American) 127.4 ml/min; Globulin 2.9 gm/dl (2.5-4.0); Glucose 116 mg/dl (70-99(Fasting)); Potassium 3.9 mmol/L (3.5-5.1); Sodium 135 mmol/L (136-145); Total Protein 6.3 gm/dl (6.0-8.3)
[2021-10-14] MEDS: LACTATED RINGER'S 1,000 ML IV PRN ×2 (09:41→13:46)
[2021-10-14] MEDS ORDERED: SODIUM CHLORIDE 0.9% INJ 10 ML VIAL ONE (12:02)
[2021-10-14] MEDS ORDERED: BUPIVACAINE 0.25% 30 ML VIAL ONE (12:02)
[2021-10-14] MEDS ORDERED: fentaNYL citrate 100 MCG/2 ML VIAL ONE (12:02)
[2021-10-14] MEDS ORDERED: ePHEDrine sulfate 50 MG/ML AMP ONE (12:02)
[2021-10-14] MEDS ORDERED: LIDOCAINE 2%/EPINEPHRINE 1:200,000 20 ML SDV ONE (12:03)
[2021-10-14] MEDS ORDERED: fentaNYL 2MCG/ML ROPIVACAINE 1.25MG/ML 100 ML BAG EPI ONE (12:03)
--- NOTE | 2021-10-14 12:15 | Anesthesiology Consultation ---
Date of Service October 14, 2021 Assessment & Plan (1) Encounter for pre-operative examination: Chart Review Chart Review: Acceptable Risk for Labor Epidural Consults Requested none ASA ASA2 Proposed Anesthesia Anesthesia Type: Labor Epidural Risk / Benefits Reviewed With: PT / POA / Parent / Guardian, Accepts Plan and Informed Consent Obtained History Height/Weight Height: 5 ft 11 in Weight: 92.533 kg Allergies Allergy/AdvReac Type Severity Reaction Status Date / Time amoxicillin Allergy Mild Rash Verified 06/27/19 08:10 Medications Home Medications Medication Instructions Recorded Confirmed Last Taken cranberry 125 mg PO DAILY 06/27/19 10/14/21 10/13/21 22:00 vit no.95-ferrous 1 tab PO DAILY 06/27/19 10/14/21 10/13/21 22:00 fumarate 28 mg-folic acid 800 mcg tablet () psyllium (Fiber Smooth) 1 ea PO DAILY 06/27/19 10/14/21 09/30/21 calcium carbonate 500 mg calcium 500 mg PO TID 10/14/21 10/14/21 10/08/21 22:00 (1,250 mg) chewable tablet docusate sodium 100 mg capsule 100 mg PO DAILY 10/14/21 10/14/21 10/13/21 22:00 (Colace) famotidine 20 mg tablet (Pepcid) 20 mg PO DAILY 10/14/21 10/14/21 10/14/21 06:30 ferrous sulfate 325 mg (65 mg 325 mg PO DAILY 10/14/21 10/14/21 10/13/21 22:00 iron) tablet (iron) Active Medications Generic Name Dose Route Start Last Admin Trade Name Philippe PRN Reason Stop Dose Admin Lactated Ringer's 1,000 mls @ 150 mls/hr 10/14/21 08:16 10/14/21 11:49 Lr IV 10/16/21 08:15 999 mls/hr .Q6H40M PRN Infusion L&D Protocol Protocol Oxytocin 30 units in 500 mls @ 10 mls/hr 10/14/21 08:23 10/14/21 11:46 Pitocin IV 10/16/21 08:22 0.6 units/hr .Q24H PRN 10 mls/hr Labor Induction/Augmentation Titration Protocol 0.6 UNITS/HR Past Medical History Medical History Allergic rhinitis Bronchospasm, exercise-induced Chronic rhinitis Migraine Exercise / Class Metabolic Activity II 4-5 Yardwork/Stairs/Walk up hill Past Family History Family History Uncle Diabetes Myocardial infarction, Onset Age: 41 Mother Cervical ca Uncle Skin cancer Past Surgical History Surgical History History of wisdom tooth extraction Hx of arthroscopic knee surgery Past Anesthesia History No Hx of Anesthesia Complications and No Family Hx of Anesthesia Complications History of PONV No Hx of PONV and No Hx of Motion Sickness Social History Smoking Status: Never smoker Hx Alcohol Use: No Hx Substance Use: No substance use type: does not use Physical Exam Vital Signs Last Vital Signs Temp 98.4 F 10/14/21 11:43 Pulse 83 10/14/21 11:58 Resp 20 10/14/21 11:43 BP 131/84 10/14/21 11:58 ENMT Mouth: no dentition abnormality Thyromental Distance: > or= 3.5 Finger Breadths Mallampati Class: II Neck normal visual inspection Respiratory normal respiratory effort Auscultation: lungs clear to auscultation bilaterally Cardiovascular Rate/Rhythm: regular rate and regular rhythm Testing Laboratory Results 10/14/21 08:27 10/14/21 08:27
[2021-10-14] MEDS ORDERED: fentaNYL 2MCG/ML ROPIVACAINE 1.25MG/ML 100 ML BAG EPI PRN (12:39)
[2021-10-14] MEDS ORDERED: diphenhydrAMINE 50 MG/ML VIAL IV PRN (12:39)
[2021-10-14] MEDS ORDERED: NALOXONE HCL 0.4 MG/1 ML VIAL/CARP IV PRN (12:39)
[2021-10-14] MEDS ORDERED: ePHEDrine sulfate 50 MG/ML AMP IV PRN (12:39)
[2021-10-14] MEDS ORDERED: NALOXONE HCL 1 MG in SODIUM CHLORIDE 0.9% 1000ML 1,000 ML IV PRN (12:39)
[2021-10-14] MEDS ORDERED: NALBUPHINE HCL INJ 10 MG/ML AMP IV PRN (12:39)
--- NOTE | 2021-10-14 14:27 | Obstetrical Progress Note ---
Date of Service October 14, 2021 Assessment & Plan Admission and Anticipated Discharge Date Admission Date: October 14, 2021 Subjective Patient is reevaluated Comfortable, received epidural VE; 4/ 50%/ -2, AROM, abundant fluid, light meconium Oxytocin is at 14, ctxs q 2-4 min FHR categ I Continue to monitor closely Results & Data ([facility]) Vital Signs (Past 12 Hours) Vital Signs Temp Pulse Resp BP Pulse Ox 10/14/21 14:20 78 126/84 99 10/14/21 14:15 74 100 10/14/21 14:12 103 H 90 10/14/21 14:10 36.8 C 82 20 100 10/14/21 14:05 93 H 100 10/14/21 14:04 118 H 121/82 10/14/21 14:00 79 100 10/14/21 13:55 103 H 100 10/14/21 13:50 92 H 98 10/14/21 13:48 81 123/86 10/14/21 13:45 83 99 10/14/21 13:40 76 99 10/14/21 13:35 84 100 10/14/21 13:33 72 124/81 10/14/21 13:30 75 100 10/14/21 13:25 76 100 10/14/21 13:20 88 99 10/14/21 13:18 82 103/63 10/14/21 13:15 79 99 10/14/21 13:10 95 H 99 10/14/21 13:05 97 H 100 10/14/21 13:03 102 H 111/71 10/14/21 13:00 84 98 10/14/21 12:55 81 100 10/14/21 12:50 82 99 10/14/21 12:47 88 107/61 10/14/21 12:45 85 110/63 98 10/14/21 12:43 93 H 107/63 10/14/21 12:42 102 H 108/67 10/14/21 12:40 85 104/55 L 97 10/14/21 12:38 100 H 108/69 10/14/21 12:36 101 H 96/56 L 10/14/21 12:35 101 H 100 10/14/21 12:33 86 110/66 10/14/21 12:31 86 121/75 10/14/21 12:30 96 H 99 07/07/22 12:27 98 H 132/90 10/14/21 12:25 101 H 100 10/14/21 12:20 92 H 99 10/14/21 11:58 83 131/84 10/14/21 11:43 36.9 C 83 20 116/73 10/14/21 11:28 78 122/83 10/14/21 11:12 82 20 121/82 10/14/21 10:57 88 125/81 10/14/21 10:42 86 125/89 10/14/21 10:29 83 134/87 10/14/21 10:12 92 H 120/74 10/14/21 09:48 90 20 120/74 10/14/21 07:55 112 H 134/92 10/14/21 07:39 37.1 C 142 H 20 121/84
--- NOTE | 2021-10-14 16:05 | Obstetrical Progress Note ---
Date of Service October 14, 2021 Assessment & Plan Admission and Anticipated Discharge Date Admission Date: October 14, 2021 Subjective Patient has right sided ptosis and numbness on right face Able to use facial muscles, can smile This happened last time on left face after epidural Anesthesia is in the room talking to her and decreased the rates of epidural VE; 6-7/ 80%/ 0 FHR categ I, mild early decels with ctxs Continue to monitor closely Anticipate Results & Data ([facility]) Vital Signs (Past 12 Hours) Vital Signs Temp Pulse Resp BP Pulse Ox 10/14/21 16:00 81 96 10/14/21 15:55 78 95 10/14/21 15:50 77 96 10/14/21 15:49 76 131/81 10/14/21 15:45 79 96 10/14/21 15:40 75 96 10/14/21 15:35 83 96 10/14/21 15:34 80 127/78 10/14/21 15:30 80 96 10/14/21 15:25 80 97 10/14/21 15:20 76 99 10/14/21 15:19 68 128/77 10/14/21 15:15 72 98 10/14/21 15:10 36.9 C 82 20 100 10/14/21 15:05 82 123/80 100 10/14/21 15:00 78 100 10/14/21 14:55 73 100 10/14/21 14:50 73 100 10/14/21 14:48 73 124/84 10/14/21 14:45 75 99 10/14/21 14:40 71 99 10/14/21 14:35 81 98 10/14/21 14:34 72 16 121/74 10/14/21 14:30 76 100 10/14/21 14:25 77 99 10/14/21 14:20 78 126/84 99 10/14/21 14:15 74 100 10/14/21 14:12 103 H 90 10/14/21 14:10 36.8 C 82 20 100 10/14/21 14:05 93 H 100 10/14/21 14:04 118 H 121/82 10/14/21 14:00 79 100 10/14/21 13:55 103 H 100 10/14/21 13:50 92 H 98 10/14/21 13:48 81 16 123/86 07/07/22 13:45 83 99 10/14/21 13:40 76 99 10/14/21 13:35 84 100 10/14/21 13:33 72 124/81 10/14/21 13:30 75 100 10/14/21 13:25 76 100 10/14/21 13:20 88 99 10/14/21 13:18 82 103/63 10/14/21 13:15 79 99 10/14/21 13:10 95 H 99 10/14/21 13:05 97 H 100 10/14/21 13:03 102 H 111/71 10/14/21 13:00 84 98 10/14/21 12:55 81 100 10/14/21 12:50 82 99 10/14/21 12:47 88 107/61 10/14/21 12:45 85 110/63 98 10/14/21 12:43 93 H 107/63 10/14/21 12:42 102 H 108/67 10/14/21 12:40 85 104/55 L 97 10/14/21 12:38 100 H 108/69 10/14/21 12:36 101 H 96/56 L 10/14/21 12:35 101 H 100 10/14/21 12:33 86 110/66 10/14/21 12:31 86 121/75 10/14/21 12:30 96 H 99 10/14/21 12:27 98 H 132/90 10/14/21 12:25 101 H 100 10/14/21 12:20 92 H 99 10/14/21 11:58 83 131/84 10/14/21 11:43 36.9 C 83 20 116/73 10/14/21 11:28 78 122/83 10/14/21 11:12 82 20 121/82 10/14/21 10:57 88 125/81 10/14/21 10:42 86 125/89 10/14/21 10:29 83 134/87 10/14/21 10:12 92 H 120/74 10/14/21 09:48 90 20 120/74 10/14/21 07:55 112 H 134/92 10/14/21 07:39 37.1 C 142 H 20 121/84
[2021-10-14] MEDS ORDERED: Nursing to Pharmacy Communication SCH (16:30)
[2021-10-14] MEDS ORDERED: MEASLES, MUMPS & RUBELLA VIRUS VIAL SQ ONE (17:06)
[2021-10-14] MEDS ORDERED: ACETAMINOPHEN 325 MG TAB PO PRN (17:06)
[2021-10-14] MEDS ORDERED: BENZOCAINE 20% AER SPR 82.5 GM CAN EXT PRN (17:06)
[2021-10-14] MEDS ORDERED: HYDROCORTISONE ACETATE 25 MG SUPP PR PRN (17:06)
[2021-10-14] MEDS ORDERED: DIPHTHERIA/TETANUS/PERTUSSIS 0.5 ML SYR/VIAL IM ONE (17:06)
[2021-10-14] MEDS ORDERED: bisacodyL 10 MG SUPP PR PRN (17:06)
--- NOTE | 2021-10-14 17:11 | Delivery Summary ---
Vaginal Delivery Summary Date of Service October 14, 2021 Vaginal Delivery Summary Patient was found to be fluid dilated and desire to push. She pushed for about 10 minutes and delivered the head without difficulty. The shoulders were delivered with minimal traction. The baby was handed off to the mother where mouth and nose were suctioned, the cord was clamped times 2 and cut at 1 minute delay. The vagina and perineum were checked for lacerations, found to be intact with no lacerations or tears. Placenta was found to be in vagina, delivered spontaneously as intact and complete. Uterus was explored and found to be empty. The lower segment was cleared of all clots and debris, EBL was 100 mL and the fundus was firm. IV oxytocin was started. The mom and baby tolerated procedure well. The sponge and instrument count was correct x2. Baby was a viable male infant, delivered at 16:51 and Apgars were 7/9. No complications happened, I was present during whole procedure.
[2021-10-14] MEDS: IBUPROFEN 600 MG TAB PO PRN ×2 (18:46→23:01)
--- NOTE | 2021-10-14 19:30 | Anesthesia Procedure Note ---
Date of Service October 14, 2021 Anesthesia Post Epidural Note Vital Signs Vital Signs: Temp Pulse Resp BP Pulse Ox 36.8 C 88 20 132/78 99 10/14/21 17:05 10/14/21 19:03 10/14/21 18:35 10/14/21 19:03 10/14/21 17:05 Pain Intensity Abdomen: Pain Intensity: 2 Notes Mental Status: alert / awake / arousable and participated in evaluation Nausea / Vomiting: adequately controlled Pain: adequately controlled Airway Patency, RR, SpO2: stable & adequate BP & HR: stable & adequate Hydration State: stable & adequate Neuraxial Anesthesia: was administered and sensory block is resolving Anesthetic Complications: no major complications apparent Epidural: Removed without complications and With tip intact
[2021-10-14] MEDS: DOCUSATE SODIUM 100 MG CAP PO SCH (23:01)
[2021-10-15] MEDS: IBUPROFEN 600 MG TAB PO PRN ×5 (04:42→23:42)
[2021-10-15 06:35] LABS: Hematocrit (blood only) 35.4 % (34.1-44.9); Hemoglobin 11.9 g/dl (12.0-16.0); Mean Corpuscular Hemoglobin 30.4 pg (25.0-34.0); Mean Corpuscular Hgb Conc 33.6 g/dL (32.0-36.0); Mean Corpuscular Volume 90.3 fL (80.0-100.0); Mean Platelet Volume 11.6 fL (9.4-12.3); Platelet Count 150 K/uL (130-400); RDW Coefficient of Variation 13.1 % (11.5-14.5); RDW Standard Deviation 42.9 fL (36.4-46.3); Red Blood Count 3.92 M/uL (3.93-5.22); White Blood Count 14.96 K/ul (4.8-10.8)
--- NOTE | 2021-10-15 07:26 | Obstetrical Progress Note ---
Date of Service October 15, 2021 Assessment & Plan (1) Normal course: Continue routine care DC home today if baby is discharged, otherwise home tomorrow Subjective Ambulation: ambulating normally Voiding: no voiding problems Passing Gas:: Yes Diet Tolerance:: regular diet Lochia:: Small Feeding Type:: breast feeding Current Pain Level(1-10): 0 Doing well, wants to go home today if possible Physical Exam Constitutional WD/WN, vitals as above Respiratory normal respiratory effort, lungs clear to auscultation Cardiovascular RRR, no murmur, no edema Gastrointestinal (Abdomen) normal bowel sounds, soft, nontender, no hepatosplenomegaly Results & Data ([facility]) Vital Signs (Past 12 Hours) Vital Signs Temp Pulse Resp BP Pulse Ox 10/15/21 04:45 36.7 C 83 16 124/85 95 10/14/21 23:04 36.6 C 74 18 115/74 10/14/21 19:55 36.8 C 87 18 131/87
[2021-10-15] MEDS ORDERED: NON-FORMULARY MEDICATION (Pnv Cmb#95-Ferrous Fumarate-Fa [Prenatal] 28 mg iron- 800 mcg Ta PO SCH (09:00)
[2021-10-15] MEDS ORDERED: CRANBERRY PO SCH (09:00)
[2021-10-15] MEDS ORDERED: NON-FORMULARY MEDICATION (Ferrous Sulfate [Iron] 325 mg (65 mg iron) Tablet) PO SCH (09:00)
[2021-10-15] MEDS: FERROUS SULFATE 325 MG TAB PO SCH (09:16)
[2021-10-15] MEDS: PRENATAL VITAMIN 1 TAB PO SCH (09:17)
[2021-10-15] MEDS: DOCUSATE SODIUM 100 MG CAP PO SCH ×2 (09:17→21:48)
[2021-10-15] MEDS: FAMOTIDINE 20 MG TAB PO SCH (09:23)
[2021-10-15] MEDS: CALCIUM CARBONATE 1250MG TAB PO SCH ×3 (09:23→21:49)
[2021-10-15] MEDS: PSYLLIUM or GUAR GUM FIBER POWDER PACKET PO SCH (09:23)
[2021-10-15] MEDS ORDERED: bisacodyL 5 MG TABEC PO SCH (20:00)
[2021-10-16] MEDS: IBUPROFEN 600 MG TAB PO PRN ×2 (06:26→11:17)
[2021-10-16 06:49] LABS: Hematocrit (blood only) 35.4 % (34.1-44.9); Hemoglobin 11.8 g/dl (12.0-16.0)
[2021-10-16] MEDS: DOCUSATE SODIUM 100 MG CAP PO SCH (08:00)
[2021-10-16] MEDS: PSYLLIUM or GUAR GUM FIBER POWDER PACKET PO SCH (09:00)
[2021-10-16] MEDS: CALCIUM CARBONATE 1250MG TAB PO SCH (09:00)
[2021-10-16] MEDS: FERROUS SULFATE 325 MG TAB PO SCH (09:08)
[2021-10-16] MEDS: PRENATAL VITAMIN 1 TAB PO SCH (09:08)
[2021-10-16] MEDS: FAMOTIDINE 20 MG TAB PO SCH (09:09)
--- NOTE | 2021-10-16 10:01 | Obstetrical Progress Note ---
Date of Service October 16, 2021 Assessment & Plan (1) Normal course: PPD #2 pt doing well No complaints d/c home with instructions Subjective Ambulation: ambulating normally Voiding: no voiding problems Passing Gas:: Yes Diet Tolerance:: regular diet Lochia:: Small Feeding Type:: breast feeding Review of Systems All systems reviewed & are unremarkable except as noted in HPI & below Physical Exam Constitutional WD/WN, vitals as above well developed and well nourished Eyes PERRL, conjunctivae normal, anicteric sclerae Neck trachea midline, no thyromegaly Respiratory normal respiratory effort, lungs clear to auscultation Auscultation: no crackles, no rales and no wheezes Cardiovascular RRR, no murmur, no edema Gastrointestinal (Abdomen) normal bowel sounds, soft, nontender, no hepatosplenomegaly Uterus is below umbilicus Musculoskeletal no cyanosis or clubbing, extremities motor strength 5/5 Skin no rashes, warm and dry Neurologic patellar DTR's 2+ bilat, sensation intact Psychiatric A+Ox3, euthymic affect Genitourinary normal external appearance Results & Data ([facility]) Vital Signs (Past 12 Hours) Vital Signs Temp Pulse Resp BP Pulse Ox 10/16/21 07:35 36.7 C 85 16 122/86 96 10/15/21 23:35 36.5 C 82 18 120/77 96
--- NOTE | 2021-11-23 11:18 | Coding Query ---
CODING QUERY To promote full compliance with coding requirements relating to patient care, provider participation is requested in all cases of print developer uncertainty. Please assist us with the question(s) below: Coding Question(s): The 10/14 progress note states "Patient has right sided ptosis and numbness on right face, Able to use facial muscles, can smile This happened last time on left face after epidural" Please confirm if this is an adverse effect or a complication of the epidural. Physician's Response(s): Please refer to anesthesiologist contracts paralegal Thank you Elva Zhao Principal Diagnosis: "that condition established after study, to be chiefly responsible for occasioning the admission of the patient to the hospital for care." Co-Existing Principal Diagnosis: "when two or more diagnoses equally meet the criteria for principal diagnosis as determined by the circumstances of admission, diagnostic work up, and/or therapy provided, and the Alphabetic Index, Tabular List, or another coding guideline does not provide sequencing direction, any one of the diagnoses may be sequenced first." "When the physician has documented what appears to be a current diagnosis in the body of the record, but has not included the diagnosis in the final diagnostic statement, the physician should be asked whether the diagnosis should be added." ([facility] 2 QTR90. p3-4) DANIELLE
--- NOTE | 2021-12-03 08:36 | Coding Query ---
CODING QUERY To promote full compliance with coding requirements relating to patient care, provider participation is requested in all cases of airplane rigger uncertainty. Please assist us with the question(s) below: Coding Question(s): The 10/14 progress note states "Patient has right sided ptosis and numbness on right face, Able to use facial muscles, can smile This happened last time on left face after epidural" Please confirm if this is an adverse effect or a complication of the epidural. Physician's Response(s): Thank you Elva Zhao In this patient it did seem to be a side effect of the epidural but it was not the principal diagnosis and not the reason the patient was admitted to the hospital. It was a temporary effect so I don't think it should even be considered a "diagnosis" - it would be like calling itching from a medicine a diagnosis. Principal Diagnosis: "that condition established after study, to be chiefly responsible for occasioning the admission of the patient to the hospital for care." Co-Existing Principal Diagnosis: "when two or more diagnoses equally meet the criteria for principal diagnosis as determined by the circumstances of admission, diagnostic work up, and/or therapy provided, and the Alphabetic Index, Tabular List, or another coding guideline does not provide sequencing direction, any one of the diagnoses may be sequenced first." "When the physician has documented what appears to be a current diagnosis in the body of the record, but has not included the diagnosis in the final diagnostic statement, the physician should be asked whether the diagnosis should be added." ([facility] 2 QTR90. p3-4) DANIELLE
== END 2021-10-16 11:25 | disposition home or self-care (01) | DRG 807 ==
LOC: 4S1 07:32 → 4E2 19:50
DX: R20.0 Anesthesia of skin; Z37.0 Single live birth; Z79.899 Other long term (current) drug therapy; O48.0 Post-term pregnancy; Z88.0 Allergy status to penicillin; O99.892 Other specified diseases and conditions complicating childbirth; Z3A.40 40 weeks gestation of pregnancy; H02.401 Unspecified ptosis of right eyelid

== ENCOUNTER 2021-10-27 14:48 | Inpatient (IN) ==
[2021-10-27 15:44] LABS: Basophils # (auto) 0.03 K/uL (0-0.2); Basophils % (auto) 0.3 %; Eosinophils # (auto) 0.05 K/uL (0-0.50); Eosinophils % (auto) 0.5 %; Hematocrit (blood only) 47.7 % (34.1-44.9); Hemoglobin 15.8 g/dl (12.0-16.0); Immature Granulocytes # (auto) 0.04 K/uL (0.00-0.02); Immature Granulocytes % (auto) 0.4 %; Lymphocytes # (auto) 1.92 K/uL (1.2-3.4); Lymphocytes % (auto) 20.4 %; Mean Corpuscular Hemoglobin 30.7 pg (25.0-34.0); Mean Corpuscular Hgb Conc 33.1 g/dL (32.0-36.0); Mean Corpuscular Volume 92.8 fL (80.0-100.0); Mean Platelet Volume 10.1 fL (9.4-12.3); Monocytes # (auto) 0.88 K/uL (0.24-0.82); Monocytes % (auto) 9.3 %; Neutrophils # (auto) 6.51 K/uL (1.4-6.5); Neutrophils % (auto) 69.1 %; Platelet Count 242 K/uL (130-400); RDW Coefficient of Variation 12.4 % (11.5-14.5); RDW Standard Deviation 42.4 fL (36.4-46.3); Red Blood Count 5.14 M/uL (3.93-5.22); White Blood Count 9.43 K/ul (4.8-10.8)
[2021-10-27 15:52] LABS: Appearance Urine Cloudy (Clear); Bacteria Urine Automated 4+ (Negative); Bilirubin Urine Negative (Negative); Blood Urine 3+ (Negative); Color Urine Yellow; Epithelial Cell Urine Auto 20-30 /lpf (0-5); Glucose Urine UA Negative (Negative); Ketones Urine Trace (Negative); Leukocyte Esterase Urine 2+ (Negative); Nitrite Urine Positive (Negative); Protein Urine 1+ (Negative); Urobilinogen Urine Negative (Negative); WBC Urine Automated >30 /hpf (0-5); pH Urine 5.5 (4.5-7.5)
[2021-10-27 15:54] LABS: Partial Thromboplastin Ratio 1.1; Partial Thromboplastin Time 31.2 Seconds (21.0-31.0); Prothrombin Time 10.3 Seconds (9.0-12.0)
[2021-10-27] MEDS ORDERED: cefTRIAXone SODIUM 2,000 MG/70 ML BAG IV STA (16:13)
[2021-10-27] MEDS ORDERED: SODIUM CHLORIDE 0.9% 1000ML 2,000 ML IV ONE (16:14)
[2021-10-27] MEDS ORDERED: metroNIDAZOLE 500 MG/100 ML BAG IV STA (16:15)
--- NOTE | 2021-10-27 16:18 | Emergency Department Note ---
Impression & Plan endometritis, Pelvic pain, Fever ED Provider Note NAME: FRANCESCO LEVINE AGE: 26 SEX: F : 1995 ARRIVES VIA: Walk-In INFORMANT: Patient ED PROVIDER(S): Alberto Ruiz DO CHIEF COMPLAINT: Lower abdominal pain HPI: Patient is a 26-year-old female who presents to the ER for lower abdominal pain. She is exactly 2 weeks from a vaginal delivery which was uncomplicated at 40 weeks 5 days as a . This weekend on Monday she started having vaginal discharge pain and fevers. Fevers as high as 103. Fevers have been persistent since Monday. On Monday she was seen by OB and placed on clindamycin for a pelvic infection. Admits to mild headache. Pain is about a 2 out of 10. Improves with Motrin. Admits to some dysuria, urgency, and frequency. No chest pain or shortness of breath. No other exacerbating or remitting factors. ROS: See above HPI for pertinent positives & negatives. A total of 10 systems reviewed and were otherwise negative. PAST MEDICAL HISTORY:See Below PAST SURGICAL HISTORY:See Below FAMILY HISTORY:See Below SOCIAL HISTORY:See Below HOME MEDICATIONS:See Below ALLERGIES:See Below VITALS:See Below PHYSICAL EXAMINATION: GENERAL: Sitting up in bed, alert, well appearing, well nourished, no distress, non-toxic EYE EXAM: normal conjunctiva. OROPHARYNX: no exudate, no erythema, lips, buccal mucosa, and tongue normal and mucous membranes are moist NECK: supple, no nuchal rigidity, no adenopathy, non-tender LUNGS: Clear to auscultation. Normal chest wall mechanics HEART: no murmurs, S1 normal and S2 normal ABDOMEN: abdomen soft, mild lower pelvic, normo-active bowel sounds, no masses, no rebound or guarding. : Deferred to TRANSPORTATION PLANNER UPPER EXTREMITIES: upper extremities are grossly normal. LOWER EXTREMITIES: No pitting edema. NEURO EXAM: Normal sensorium, cranial nerves II-XII grossly intact, normal speech, no gross weakness of arms, no gross weakness of legs. MEDICAL DECISION MAKING: Patient is a 26-year-old female who presents ER for above-stated complaint. IV was established blood work was obtained. She still having persistent fevers after starting clindamycin on Monday. Labs show no significant leukocytosis or anemia. INR was unremarkable. BMP with LFTs was unremarkable. Pro-Annie and lactate were normal. UA was contaminated but did have nitrates which suggest a possible UTI. She was given 2 g Rocephin. She was updated bedside. Discussed with Dr. Michael who recommended no imaging and she will admit for IV antibiotics with persistent fevers on clindamycin. Triage Nursing notes reviewed. Limited review of prior medical records performed Vital Signs: reviewed and remarkable for no significant abnormalities Differential diagnosis: Differential diagnoses includes but is not limited to gastritis, peptic ulcer disease, GERD, gallbladder disease, pancreatitis, small bowel obstruction, acute coronary syndrome, pericarditis, ischemic bowel, irritable bowel disease, irritable bowel syndrome, appendicitis, diverticulitis, malignancy, hernia, urinary tract infection, torsion, /ectopic (if female), perforation, trauma, infectious. ER treatment provided: See below Diagnostics interpreted by me: ECG: none Cardiac Monitoring: An order was placed for continuous cardiac monitoring. The monitor shows a rate of 78 with sinus rhythm. Laboratory studies: As stated above and show below. Imaging studies: See below Consultation(s): Discussed with [place] [facility] who recommended no imaging and they will admit after evaluation Procedures: none Critical Care: None Past Med/Surg History Medical History Allergic rhinitis Bronchospasm, exercise-induced Chronic rhinitis Migraine Surgical History History of wisdom tooth extraction Hx of arthroscopic knee surgery Family History Uncle Diabetes Myocardial infarction, Onset Age: 41 Mother Cervical ca Uncle Skin cancer Social History Smoking Status: Never smoker Hx Alcohol Use: No Hx Substance Use: No Preferred Language: Kinyarwanda Communication Ability: Effective Party Host Required: No Beliefs That Will Affect Care: None marital status: Current Living Situation: Spouse and Family Current Living Situation Comment: , 2 young male children current occupational status: employed 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 Other Information That Helps Us Care for You: No Feels Safe at Home: Yes Safety Concerns: Feels Safe At This Time Dental Care, Regularly: Yes Gender Identity: Female Assistive Devices: Glasses Allergies Allergies Allergy/AdvReac Type Severity Reaction Status Date / Time amoxicillin Allergy Mild Rash Verified 10/27/21 17:15 Home Meds Home Medications Medication Instructions Recorded Confirmed docusate sodium 100 mg capsule 100 mg PO DAILY 10/14/21 10/27/21 (Colace) ferrous sulfate 325 mg (65 mg 325 mg PO DAILY 10/14/21 10/27/21 iron) tablet (iron) acetaminophen 325 mg tablet 650 mg PO Q6 PRN Fever Or Pain 10/27/21 10/27/21 clindamycin HCl 300 mg capsule 300 mg PO TID 10/27/21 10/27/21 cranberry 500 mg capsule 500 mg PO DAILY 10/27/21 10/27/21 prenat.vits,annie,izo-qmsn-gymcd 1 tab PO DAILY 10/27/21 10/27/21 Results & Data (ED) Vital Signs Vital Signs - 24 hr 10/27/21 15:02 10/27/21 16:49 Temperature 37.0 C Temperature Source Temporal Artery Scan Pulse Rate 104 H Pulse Rate [Left Radial] 74 Pulse Rhythm [Left Radial] Regular Respiratory Rate 18 20 Respiratory Effort / Characteristics Non-Labored Spontaneous Non-Labored Respiratory Depth Normal Normal Respiratory Pattern Regular Blood Pressure 135/87 Blood Pressure [Left Arm] 124/77 Blood Pressure Mean 103 Blood Pressure Mean [Left Arm] 92 Blood Pressure Position [Left Arm] Lying Pulse Oximetry 98 99 Oxygen Delivery Method Room Air Room Air Sepsis Recent Fever Within 48 Hours Yes Sepsis New/Unexplained Change in Mental Status No Sepsis Action Taken by Nursing No Action Required Laboratory Data Result diagrams: 10/27/21 15:22 10/27/21 15:22 Lab Results 10/27/21 10/27/21 10/27/21 Range/Units 15:22 15:22 15:22 WBC 9.43 (4.8-10.8) K/ul RBC 5.14 (3.93-5.22) M/uL Hgb 15.8 (12.0-16.0) g/dl Hct 47.7 H (34.1-44.9) % MCV 92.8 (80.0-100.0) fL MCH 30.7 (25.0-34.0) pg MCHC 33.1 (32.0-36.0) g/dL RDW Std Deviation 42.4 (36.4-46.3) fL RDW Coeff of Anisa 12.4 (11.5-14.5) % Plt Count 242 (130-400) K/uL MPV 10.1 (9.4-12.3) fL Immature Gran % (Auto) 0.4 % Neut % (Auto) 69.1 % Lymph % (Auto) 20.4 % [place] % (Auto) 9.3 % Eos % (Auto) 0.5 % Baso % (Auto) 0.3 % Neut # (Auto) 6.51 H (1.4-6.5) K/uL Lymph # (Auto) 1.92 (1.2-3.4) K/uL [place] # (Auto) 0.88 H (0.24-0.82) K/uL Eos # (Auto) 0.05 (0-0.50) K/uL Baso # (Auto) 0.03 (0-0.2) K/uL Immature Gran # (Auto) 0.04 H (0.00-0.02) K/uL PT 10.3 (9.0-12.0) Seconds INR 1.0 (0.9-1.1) APTT 31.2 H (21.0-31.0) Seconds PTT Ratio 1.1 Sodium 138 (136-145) mmol/L Potassium 4.3 (3.5-5.1) mmol/L Chloride 106 (98-107) mmol/L Carbon Dioxide 24 (21-32) mmol/L Anion Gap 8 (3-11) BUN 14 (6-23) mg/dl Creatinine 0.88 (0.6-1.2) mg/dl Est Cr Clr Drug Dosing 109.2 ml/min Est GFR ( Amer) 105.8 ml/min Est GFR (Non-Af Amer) 91.3 ml/min BUN/Creatinine Ratio 15.9 (10-20) Glucose 142 H (70-99(Fasting)) mg/dl Lactate (0.4-2.0) mmol/L Calcium 9.1 (8.5-10.1) mg/dl Magnesium 2.0 (1.7-2.4) mg/dl Total Bilirubin 0.4 (0.2-1.0) mg/dl AST 14 (13-39) U/L ALT 15 (7-52) U/L Alkaline Phosphatase 107 H (34-104) U/L Total Protein 7.7 (6.0-8.3) gm/dl Albumin 4.1 (3.4-5.0) gm/dl Globulin 3.6 (2.5-4.0) gm/dl Albumin/Globulin Ratio 1.1 (0.9-2) Procalcitonin (0-0.5) ng/ml Urine Color Urine Appearance (Clear) Urine pH (4.5-7.5) Ur Specific [place] (1.000-1.030) Urine Protein (Negative) Urine Glucose (UA) (Negative) Urine Ketones (Negative) Urine Blood (Negative) Urine Nitrite (Negative) Urine Bilirubin (Negative) Urine Urobilinogen (Negative) Ur Leukocyte Esterase (Negative) Urine WBC (Auto) (0-5) /hpf Urine RBC (Auto) (0-4) /hpf U Hyaline Cast (Auto) (0-5) /lpf U Epithel Cells (Auto) (0-5) /lpf Urine Bacteria (Auto) (Negative) SARS-CoV-2, RNA, NAAT (NEGATIVE) 10/27/21 10/27/21 10/27/21 Range/Units 15:22 15:22 15:22 WBC (4.8-10.8) K/ul RBC (3.93-5.22) M/uL Hgb (12.0-16.0) g/dl Hct (34.1-44.9) % MCV (80.0-100.0) fL MCH (25.0-34.0) pg MCHC (32.0-36.0) g/dL RDW Std Deviation (36.4-46.3) fL RDW Coeff of Anisa (11.5-14.5) % Plt Count (130-400) K/uL MPV (9.4-12.3) fL Immature Gran % (Auto) % Neut % (Auto) % Lymph % (Auto) % [place] % (Auto) % Eos % (Auto) % Baso % (Auto) % Neut # (Auto) (1.4-6.5) K/uL Lymph # (Auto) (1.2-3.4) K/uL [place] # (Auto) (0.24-0.82) K/uL Eos # (Auto) (0-0.50) K/uL Baso # (Auto) (0-0.2) K/uL Immature Gran # (Auto) (0.00-0.02) K/uL PT (9.0-12.0) Seconds INR (0.9-1.1) APTT (21.0-31.0) Seconds PTT Ratio Sodium Cancelled Cancelled (136-145) mmol/L Potassium Cancelled Cancelled (3.5-5.1) mmol/L Chloride Cancelled Cancelled (98-107) mmol/L Carbon Dioxide Cancelled Cancelled (21-32) mmol/L Anion Gap Cancelled Cancelled (3-11) BUN Cancelled Cancelled (6-23) mg/dl Creatinine Cancelled Cancelled (0.6-1.2) mg/dl Est Cr Clr Drug Dosing Cancelled Cancelled ml/min Est GFR ( Amer) Cancelled Cancelled ml/min Est GFR (Non-Af Amer) Cancelled Cancelled ml/min BUN/Creatinine Ratio Cancelled Cancelled (10-20) Glucose Cancelled Cancelled (70-99(Fasting)) mg/dl Lactate (0.4-2.0) mmol/L Calcium Cancelled Cancelled (8.5-10.1) mg/dl Magnesium (1.7-2.4) mg/dl Total Bilirubin Cancelled Cancelled (0.2-1.0) mg/dl AST Cancelled Cancelled (13-39) U/L ALT Cancelled Cancelled (7-52) U/L Alkaline Phosphatase Cancelled Cancelled (34-104) U/L Total Protein Cancelled Cancelled (6.0-8.3) gm/dl Albumin Cancelled Cancelled (3.4-5.0) gm/dl Globulin Cancelled Cancelled (2.5-4.0) gm/dl Albumin/Globulin Ratio Cancelled Cancelled (0.9-2) Procalcitonin (0-0.5) ng/ml Urine Color Yellow Urine Appearance Cloudy A (Clear) Urine pH 5.5 (4.5-7.5) Ur Specific [place] 1.020 (1.000-1.030) Urine Protein 1+ H (Negative) Urine Glucose (UA) Negative (Negative) Urine Ketones Trace H (Negative) Urine Blood 3+ H (Negative) Urine Nitrite Positive A (Negative) Urine Bilirubin Negative (Negative) Urine Urobilinogen Negative (Negative) Ur Leukocyte Esterase 2+ H (Negative) Urine WBC (Auto) >30 H (0-5) /hpf Urine RBC (Auto) 10-30 H (0-4) /hpf U Hyaline Cast (Auto) 1-5 (0-5) /lpf U Epithel Cells (Auto) 20-30 H (0-5) /lpf Urine Bacteria (Auto) 4+ H (Negative) SARS-CoV-2, RNA, NAAT (NEGATIVE) 10/27/21 10/27/21 10/27/21 Range/Units 15:22 16:36 16:36 WBC (4.8-10.8) K/ul RBC (3.93-5.22) M/uL Hgb (12.0-16.0) g/dl Hct (34.1-44.9) % MCV (80.0-100.0) fL MCH (25.0-34.0) pg MCHC (32.0-36.0) g/dL RDW Std Deviation (36.4-46.3) fL RDW Coeff of Anisa (11.5-14.5) % Plt Count (130-400) K/uL MPV (9.4-12.3) fL Immature Gran % (Auto) % Neut % (Auto) % Lymph % (Auto) % [place] % (Auto) % Eos % (Auto) % Baso % (Auto) % Neut # (Auto) (1.4-6.5) K/uL Lymph # (Auto) (1.2-3.4) K/uL [place] # (Auto) (0.24-0.82) K/uL Eos # (Auto) (0-0.50) K/uL Baso # (Auto) (0-0.2) K/uL Immature Gran # (Auto) (0.00-0.02) K/uL PT (9.0-12.0) Seconds INR (0.9-1.1) APTT (21.0-31.0) Seconds PTT Ratio Sodium (136-145) mmol/L Potassium (3.5-5.1) mmol/L Chloride (98-107) mmol/L Carbon Dioxide (21-32) mmol/L Anion Gap (3-11) BUN (6-23) mg/dl Creatinine (0.6-1.2) mg/dl Est Cr Clr Drug Dosing ml/min Est GFR ( Amer) ml/min Est GFR (Non-Af Amer) ml/min BUN/Creatinine Ratio (10-20) Glucose (70-99(Fasting)) mg/dl Lactate 0.5 (0.4-2.0) mmol/L Calcium (8.5-10.1) mg/dl Magnesium (1.7-2.4) mg/dl Total Bilirubin (0.2-1.0) mg/dl AST (13-39) U/L ALT (7-52) U/L Alkaline Phosphatase (34-104) U/L Total Protein (6.0-8.3) gm/dl Albumin (3.4-5.0) gm/dl Globulin (2.5-4.0) gm/dl Albumin/Globulin Ratio (0.9-2) Procalcitonin 0.38 (0-0.5) ng/ml Urine Color Urine Appearance (Clear) Urine pH (4.5-7.5) Ur Specific [place] (1.000-1.030) Urine Protein (Negative) Urine Glucose (UA) (Negative) Urine Ketones (Negative) Urine Blood (Negative) Urine Nitrite (Negative) Urine Bilirubin (Negative) Urine Urobilinogen (Negative) Ur Leukocyte Esterase (Negative) Urine WBC (Auto) (0-5) /hpf Urine RBC (Auto) (0-4) /hpf U Hyaline Cast (Auto) (0-5) /lpf U Epithel Cells (Auto) (0-5) /lpf Urine Bacteria (Auto) (Negative) SARS-CoV-2, RNA, NAAT NEGATIVE (NEGATIVE) Administered Medications Acetaminophen (Acetaminophen 325 Mg Tab) 650 mg PO Q4H PRN PRN Reason: Pain or Fever Stop: 11/26/21 17:18 Last Admin: 10/27/21 20:39 Dose: 650 mg Documented By: GERSON Dextrose/Sodium Chloride (D5w And 1/2nss) 1,000 mls @ 125 mls/hr IV .Q8H ANABELLA Stop: 11/26/21 17:29 Last Admin: 10/27/21 18:49 Dose: 125 mls/hr Documented By: MARTHA Clindamycin Phosphate (Cleocin/D5w) 900 mg in 50 mls @ 100 mls/hr IV Q8H ANABELLA Stop: 11/06/21 17:59 Last Infusion: 10/27/21 19:31 Dose: 0 mls/hr Documented By: Admin: 10/27/21 18:49 Dose: 100 mls/hr Documented By: MARTHA Gentamicin Sulfate 400 mg/ (Dextrose) 110 mls @ 100 mls/hr IV Q24H ANABELLA; Protocol Stop: 11/01/21 17:59 Last Infusion: 10/27/21 20:39 Dose: 0 mls/hr Documented By: Admin: 10/27/21 19:31 Dose: 100 mls/hr Documented By: MARTHA Discontinued Medications Ceftriaxone Sodium (Rocephin) 2,000 mg in 70 mls @ 140 mls/hr IV NOW STA Stop: 10/27/21 16:42 Last Infusion: 10/27/21 17:49 Dose: 0 mls/hr Documented By: Admin: 10/27/21 16:39 Dose: 140 mls/hr Documented By: MARTHA Sodium Chloride (Nss 1000ml) 2,000 mls @ 999 mls/hr IV .Q2H1M ONE Stop: 10/27/21 18:14 Last Infusion: 10/27/21 19:37 Dose: 0 mls/hr Documented By: Admin: 10/27/21 16:39 Dose: 999 mls/hr Documented By: MARTHA Metronidazole (Flagyl) 500 mg in 100 mls @ 100 mls/hr IV NOW STA Stop: 10/27/21 17:14 Last Admin: 10/27/21 17:49 Dose: Not Given Documented By: MARTHA Discharge Plan Visit Data Chief Complaint: Urinary Symptoms Stated Complaint: REF BY , UTI ED Provider: Alberto Ruiz Discharge Problem: endometritis, Pelvic pain, Fever Patient Disposition: Admitted As Inpatient Discharge Instructions Interventions: ED Discharge Assessment Last Done: 10/27/21 19:39
[2021-10-27 16:26] LABS: Albumin Globulin Ratio 1.1 (0.9-2); Albumin Level 4.1 gm/dl (3.4-5.0); BUN Creatinine Ratio 15.9 (10-20); Bilirubin,Total 0.4 mg/dl (0.2-1.0); Calcium 9.1 mg/dl (8.5-10.1); Creatinine Clr Calc Pharmacy 109.2 ml/min; Est GFR (African American) 105.8 ml/min; Est GFR (Non-African American) 91.3 ml/min; Globulin 3.6 gm/dl (2.5-4.0); Potassium 4.3 mmol/L (3.5-5.1); Total Protein 7.7 gm/dl (6.0-8.3)
[2021-10-27] MEDS ORDERED: MAGNESIUM HYDROXIDE SUSP 30 ML UDC PO PRN (17:19)
[2021-10-27] MEDS ORDERED: ACETAMINOPHEN 325 MG TAB PO PRN (17:19)
[2021-10-27] MEDS ORDERED: ONDANSETRON INJ 2 MG/ML 2 ML VIAL IV PRN (17:19)
[2021-10-27] MEDS ORDERED: GENTAMICIN CONSULT ACTIVE PRN (17:19)
[2021-10-27] MEDS ORDERED: LORazepam 0.5 MG TAB PO PRN (17:19)
[2021-10-27] MEDS ORDERED: ALUMINUM/MAGNESIUM/SIMETH (MAALOX MAX) 30 ML UDC PO PRN (17:19)
--- NOTE | 2021-10-27 18:03 | History & Physical Report ---
Date of Service October 27, 2021 Assessment & Plan (1) Fever: (2) Pelvic pain: (3) endometritis: Plan: 26 yo female s/p uncomplicated on 10/14, now with fever/ pelvic pain, d/c VSS Afebrile here with 2 temp measurements WBCC normal Cervical and uterine tenderness, suggesting Pp endometritis, started with Rocephin in ER already, no reaction Recommended admission for IV AB for 24-48 hours and then d/c home with PO Antibiotics She agreed All questions were answered. History of Present Illness Chief Complaint: Fevers, lower abdominal pain Primary Care Provider: Candida Ross PA-C HPI: Patient is a 26-year-old female who presents the ER for lower abdominal pain. She is 2 weeks from a vaginal delivery on 10/14 by myself, which was uncomplicated at 40 weeks 5 days. This weekend on Monday she started having vaginal discharge pain and fevers. Fevers as high as 103. Fevers have been persistent since Monday. On Monday she was seen by OB office, [facility] [employer] [employer], and placed on clindamycin PO for a pelvic infection. Pain is about a 2 out of 10. Improves with Motrin. She had no VB last week and started to have light VB with foul smelling pus. She also has some dysuria urgency and frequency. No chest pain or shortness of breath. No other exacerbating or remitting factors. No N&V,M able to eat and drink regularly. Breast feeding her baby. Allergies Allergy/AdvReac Type Severity Reaction Status Date / Time amoxicillin Allergy Mild Rash Verified 10/27/21 17:15 Home Medications Medication Instructions Recorded Confirmed Type docusate sodium 100 mg capsule 100 mg PO DAILY 10/14/21 10/27/21 History (Colace) ferrous sulfate 325 mg (65 mg 325 mg PO DAILY 10/14/21 10/27/21 History iron) tablet (iron) acetaminophen 325 mg tablet 650 mg PO Q6 PRN Fever Or Pain 10/27/21 10/27/21 History clindamycin HCl 300 mg capsule 300 mg PO TID 10/27/21 10/27/21 History cranberry 500 mg capsule 500 mg PO DAILY 10/27/21 10/27/21 History prenat.vits,annie,jwz-cmjg-lycyq 1 tab PO DAILY 10/27/21 10/27/21 History Patient History Medical History Allergic rhinitis Bronchospasm, exercise-induced Chronic rhinitis Migraine Surgical History History of wisdom tooth extraction Hx of arthroscopic knee surgery Family History Uncle Diabetes Myocardial infarction, Onset Age: 41 Mother Cervical ca Uncle Skin cancer Social History Smoking Status: Never smoker Hx Alcohol Use: No Hx Substance Use: No Preferred Language: Greenlandic Communication Ability: Effective Installment Agent Required: No Beliefs That Will Affect Care: None marital status: Current Living Situation: Spouse Current Living Situation Comment: Lives with , son, 2 dogs and 2 cats current occupational status: employed 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 Review of Systems as per Subjective / HPI Physical Exam Constitutional: WD/WN, vitals as above well developed and well nourished Comfortable, NAD Gastrointestinal (Abdomen): normal bowel sounds, soft, nontender, no hepatosplenomegaly (mild lower abdominal tenderness, no rebound.) Genitourinary: normal external appearance Speculum/Bimanual Exam: normal appearance of the vagina (clean, intact, no blood, no d/c), normal appearance of the cervix (small pink mucousy d/c, no bleeding, no pus), + cervical tenderness (CMT+), + abnormal uterine size (12-14 weeks size, tender on palpation), + adnexal tenderness, + cervical motion tenderness and + uterus tender Results & Data ([facility]) Vital Signs (Past 12 Hours) Vital Signs Temp Pulse Resp BP Pulse Ox O2 Del Method 10/27/21 15:02 37.0 C 104 H 18 135/87 98 Room Air Laboratory Results Lab Results 10/27/21 10/27/21 10/27/21 Range/Units 15:22 15:22 15:22 WBC 9.43 (4.8-10.8) K/ul RBC 5.14 (3.93-5.22) M/uL Hgb 15.8 (12.0-16.0) g/dl Hct 47.7 H (34.1-44.9) % MCV 92.8 (80.0-100.0) fL MCH 30.7 (25.0-34.0) pg MCHC 33.1 (32.0-36.0) g/dL RDW Std Deviation 42.4 (36.4-46.3) fL RDW Coeff of Anisa 12.4 (11.5-14.5) % Plt Count 242 (130-400) K/uL MPV 10.1 (9.4-12.3) fL Immature Gran % (Auto) 0.4 % Neut % (Auto) 69.1 % Lymph % (Auto) 20.4 % [place] % (Auto) 9.3 % Eos % (Auto) 0.5 % Baso % (Auto) 0.3 % Neut # (Auto) 6.51 H (1.4-6.5) K/uL Lymph # (Auto) 1.92 (1.2-3.4) K/uL [place] # (Auto) 0.88 H (0.24-0.82) K/uL Eos # (Auto) 0.05 (0-0.50) K/uL Baso # (Auto) 0.03 (0-0.2) K/uL Immature Gran # (Auto) 0.04 H (0.00-0.02) K/uL PT 10.3 (9.0-12.0) Seconds INR 1.0 (0.9-1.1) APTT 31.2 H (21.0-31.0) Seconds PTT Ratio 1.1 Sodium 138 (136-145) mmol/L Potassium 4.3 (3.5-5.1) mmol/L Chloride 106 (98-107) mmol/L Carbon Dioxide 24 (21-32) mmol/L Anion Gap 8 (3-11) BUN 14 (6-23) mg/dl Creatinine 0.88 (0.6-1.2) mg/dl Est Cr Clr Drug Dosing 109.2 ml/min Est GFR ( Amer) 105.8 ml/min Est GFR (Non-Af Amer) 91.3 ml/min BUN/Creatinine Ratio 15.9 (10-20) Glucose 142 H (70-99(Fasting)) mg/dl Lactate (0.4-2.0) mmol/L Calcium 9.1 (8.5-10.1) mg/dl Magnesium 2.0 (1.7-2.4) mg/dl Total Bilirubin 0.4 (0.2-1.0) mg/dl AST 14 (13-39) U/L ALT 15 (7-52) U/L Alkaline Phosphatase 107 H (34-104) U/L Total Protein 7.7 (6.0-8.3) gm/dl Albumin 4.1 (3.4-5.0) gm/dl Globulin 3.6 (2.5-4.0) gm/dl Albumin/Globulin Ratio 1.1 (0.9-2) Procalcitonin (0-0.5) ng/ml Urine Color Urine Appearance (Clear) Urine pH (4.5-7.5) Ur Specific [place] (1.000-1.030) Urine Protein (Negative) Urine Glucose (UA) (Negative) Urine Ketones (Negative) Urine Blood (Negative) Urine Nitrite (Negative) Urine Bilirubin (Negative) Urine Urobilinogen (Negative) Ur Leukocyte Esterase (Negative) Urine WBC (Auto) (0-5) /hpf Urine RBC (Auto) (0-4) /hpf U Hyaline Cast (Auto) (0-5) /lpf U Epithel Cells (Auto) (0-5) /lpf Urine Bacteria (Auto) (Negative) SARS-CoV-2, RNA, NAAT (NEGATIVE) 10/27/21 10/27/21 10/27/21 Range/Units 15:22 15:22 15:22 WBC (4.8-10.8) K/ul RBC (3.93-5.22) M/uL Hgb (12.0-16.0) g/dl Hct (34.1-44.9) % MCV (80.0-100.0) fL MCH (25.0-34.0) pg MCHC (32.0-36.0) g/dL RDW Std Deviation (36.4-46.3) fL RDW Coeff of Anisa (11.5-14.5) % Plt Count (130-400) K/uL MPV (9.4-12.3) fL Immature Gran % (Auto) % Neut % (Auto) % Lymph % (Auto) % [place] % (Auto) % Eos % (Auto) % Baso % (Auto) % Neut # (Auto) (1.4-6.5) K/uL Lymph # (Auto) (1.2-3.4) K/uL [place] # (Auto) (0.24-0.82) K/uL Eos # (Auto) (0-0.50) K/uL Baso # (Auto) (0-0.2) K/uL Immature Gran # (Auto) (0.00-0.02) K/uL PT (9.0-12.0) Seconds INR (0.9-1.1) APTT (21.0-31.0) Seconds PTT Ratio Sodium Cancelled Cancelled (136-145) mmol/L Potassium Cancelled Cancelled (3.5-5.1) mmol/L Chloride Cancelled Cancelled (98-107) mmol/L Carbon Dioxide Cancelled Cancelled (21-32) mmol/L Anion Gap Cancelled Cancelled (3-11) BUN Cancelled Cancelled (6-23) mg/dl Creatinine Cancelled Cancelled (0.6-1.2) mg/dl Est Cr Clr Drug Dosing Cancelled Cancelled ml/min Est GFR ( Amer) Cancelled Cancelled ml/min Est GFR (Non-Af Amer) Cancelled Cancelled ml/min BUN/Creatinine Ratio Cancelled Cancelled (10-20) Glucose Cancelled Cancelled (70-99(Fasting)) mg/dl Lactate (0.4-2.0) mmol/L Calcium Cancelled Cancelled (8.5-10.1) mg/dl Magnesium (1.7-2.4) mg/dl Total Bilirubin Cancelled Cancelled (0.2-1.0) mg/dl AST Cancelled Cancelled (13-39) U/L ALT Cancelled Cancelled (7-52) U/L Alkaline Phosphatase Cancelled Cancelled (34-104) U/L Total Protein Cancelled Cancelled (6.0-8.3) gm/dl Albumin Cancelled Cancelled (3.4-5.0) gm/dl Globulin Cancelled Cancelled (2.5-4.0) gm/dl Albumin/Globulin Ratio Cancelled Cancelled (0.9-2) Procalcitonin (0-0.5) ng/ml Urine Color Yellow Urine Appearance Cloudy A (Clear) Urine pH 5.5 (4.5-7.5) Ur Specific [place] 1.020 (1.000-1.030) Urine Protein 1+ H (Negative) Urine Glucose (UA) Negative (Negative) Urine Ketones Trace H (Negative) Urine Blood 3+ H (Negative) Urine Nitrite Positive A (Negative) Urine Bilirubin Negative (Negative) Urine Urobilinogen Negative (Negative) Ur Leukocyte Esterase 2+ H (Negative) Urine WBC (Auto) >30 H (0-5) /hpf Urine RBC (Auto) 10-30 H (0-4) /hpf U Hyaline Cast (Auto) 1-5 (0-5) /lpf U Epithel Cells (Auto) 20-30 H (0-5) /lpf Urine Bacteria (Auto) 4+ H (Negative) SARS-CoV-2, RNA, NAAT (NEGATIVE) 10/27/21 10/27/21 10/27/21 Range/Units 15:22 16:36 16:36 WBC (4.8-10.8) K/ul RBC (3.93-5.22) M/uL Hgb (12.0-16.0) g/dl Hct (34.1-44.9) % MCV (80.0-100.0) fL MCH (25.0-34.0) pg MCHC (32.0-36.0) g/dL RDW Std Deviation (36.4-46.3) fL RDW Coeff of Anisa (11.5-14.5) % Plt Count (130-400) K/uL MPV (9.4-12.3) fL Immature Gran % (Auto) % Neut % (Auto) % Lymph % (Auto) % [place] % (Auto) % Eos % (Auto) % Baso % (Auto) % Neut # (Auto) (1.4-6.5) K/uL Lymph # (Auto) (1.2-3.4) K/uL [place] # (Auto) (0.24-0.82) K/uL Eos # (Auto) (0-0.50) K/uL Baso # (Auto) (0-0.2) K/uL Immature Gran # (Auto) (0.00-0.02) K/uL PT (9.0-12.0) Seconds INR (0.9-1.1) APTT (21.0-31.0) Seconds PTT Ratio Sodium (136-145) mmol/L Potassium (3.5-5.1) mmol/L Chloride (98-107) mmol/L Carbon Dioxide (21-32) mmol/L Anion Gap (3-11) BUN (6-23) mg/dl Creatinine (0.6-1.2) mg/dl Est Cr Clr Drug Dosing ml/min Est GFR ( Amer) ml/min Est GFR (Non-Af Amer) ml/min BUN/Creatinine Ratio (10-20) Glucose (70-99(Fasting)) mg/dl Lactate 0.5 (0.4-2.0) mmol/L Calcium (8.5-10.1) mg/dl Magnesium (1.7-2.4) mg/dl Total Bilirubin (0.2-1.0) mg/dl AST (13-39) U/L ALT (7-52) U/L Alkaline Phosphatase (34-104) U/L Total Protein (6.0-8.3) gm/dl Albumin (3.4-5.0) gm/dl Globulin (2.5-4.0) gm/dl Albumin/Globulin Ratio (0.9-2) Procalcitonin 0.38 (0-0.5) ng/ml Urine Color Urine Appearance (Clear) Urine pH (4.5-7.5) Ur Specific [place] (1.000-1.030) Urine Protein (Negative) Urine Glucose (UA) (Negative) Urine Ketones (Negative) Urine Blood (Negative) Urine Nitrite (Negative) Urine Bilirubin (Negative) Urine Urobilinogen (Negative) Ur Leukocyte Esterase (Negative) Urine WBC (Auto) (0-5) /hpf Urine RBC (Auto) (0-4) /hpf U Hyaline Cast (Auto) (0-5) /lpf U Epithel Cells (Auto) (0-5) /lpf Urine Bacteria (Auto) (Negative) SARS-CoV-2, RNA, NAAT NEGATIVE (NEGATIVE)
--- NOTE | 2021-10-27 18:12 | Pharmacy Report ---
Pharmacy PK ABX Note - Date of Service October 27, 2021 - Assessment and Plan Assessment 26 year old F receiving IV Gentamicin + Clindamycin for treatment of UTI. Pt is exactly 2 weeks from a vaginal delivery which was uncomplicated at 40 weeks 5 days as a . Vaginal discharge and fevers as high at 103 began this weekend, placed on clindamycin for a pelvic infection. Pt with some dysuria urgency and frequency. WBC wnl Blood and urine cx pending Ceftriaxone + metronidazole IV x 1 in ER Plan Gentamicin * 400 mg (5 mg/kg) IV every 24 hours, actual body weight * Gentamicin levels do not need to be monitored in patients receiving gentamicin 5mg/kg q24h for short course therapy (< 72 hours) as long as they have normal renal function. * If therapy continues for > 72 hours, will obtain a trough level 30 minutes prior to next dose * Target trough < 1 mcg/mL * Pt considered post- x 6 weeks post delivery Clindamycin 900mg IV Q8H Pharmacy will continue to follow and will adjust dose/frequency as necessary. Thank you.
[2021-10-27] MEDS: CLINDAMYCIN/D5W 900 MG/50 ML BAG IV SCH (18:49)
[2021-10-27] MEDS: D5W AND 1/2NSS 1,000 ML IV SCH (18:49)
[2021-10-27] MEDS: GENTAMICIN SULFATE 400 MG in DEXTROSE 5% 100 ML IV SCH (19:31)
[2021-10-28] MEDS: D5W AND 1/2NSS 1,000 ML IV SCH ×2 (02:35→11:54)
[2021-10-28] MEDS: CLINDAMYCIN/D5W 900 MG/50 ML BAG IV SCH ×3 (02:36→17:18)
[2021-10-28 06:12] LABS: Basophils # (auto) 0.03 K/uL (0-0.2); Basophils % (auto) 0.5 %; Eosinophils # (auto) 0.11 K/uL (0-0.50); Eosinophils % (auto) 1.8 %; Hematocrit (blood only) 41.5 % (34.1-44.9); Hemoglobin 13.7 g/dl (12.0-16.0); Immature Granulocytes # (auto) 0.01 K/uL (0.00-0.02); Immature Granulocytes % (auto) 0.2 %; Lymphocytes # (auto) 2.11 K/uL (1.2-3.4); Lymphocytes % (auto) 35.3 %; Mean Corpuscular Hemoglobin 30.4 pg (25.0-34.0); Mean Corpuscular Volume 92.2 fL (80.0-100.0); Monocytes % (auto) 11.7 %; Neutrophils # (auto) 3.02 K/uL (1.4-6.5); Neutrophils % (auto) 50.5 %; Platelet Count 204 K/uL (130-400); RDW Coefficient of Variation 12.4 % (11.5-14.5); RDW Standard Deviation 42.3 fL (36.4-46.3); White Blood Count 5.98 K/ul (4.8-10.8)
[2021-10-28 07:00] LABS: Albumin Globulin Ratio 1.2 (0.9-2); Albumin Level 3.3 gm/dl (3.4-5.0); BUN Creatinine Ratio 14.1 (10-20); Bilirubin,Total 0.3 mg/dl (0.2-1.0); Calcium 7.8 mg/dl (8.5-10.1); Creatinine Clr Calc Pharmacy 135.4 ml/min; Est GFR (African American) 137.2 ml/min; Est GFR (Non-African American) 118.4 ml/min; Globulin 2.8 gm/dl (2.5-4.0); Potassium 4.5 mmol/L (3.5-5.1); Total Protein 6.1 gm/dl (6.0-8.3)
[2021-10-28] MEDS ORDERED: PRENATAL VITAMIN 1 TAB PO SCH (09:00)
[2021-10-28] MEDS ORDERED: FERROUS SULFATE 325 MG TAB PO SCH (09:00)
[2021-10-28] MEDS ORDERED: DOCUSATE SODIUM 100 MG CAP PO SCH (09:00)
[2021-10-28] MEDS ORDERED: cefTRIAXone SODIUM 2,000 MG/70 ML BAG IV SCH (09:00)
--- NOTE | 2021-10-28 10:03 | Gynecologic Progress Note ---
Date of Service October 28, 2021 Assessment & Plan Admission and Anticipated Discharge Date Admission Date: October 27, 2021 Subjective doing well out of bed natalya. diet breast feeding minimal discomfort Review of Systems Review of Systems: All systems reviewed & are unremarkable except as noted in HPI & below Physical Exam Constitutional: WD/WN, vitals as above Gastrointestinal (Abdomen): normal bowel sounds, soft, nontender, no h epatosplenomegaly Inspection/Auscultation: abdomen normal to inspection abdomen soft and non-tender Musculoskeletal: Extremities: extremities normal to inspection no edema. neg Bart's Skin: no rashes, warm and dry Neurologic: patellar DTR's 2+ bilat, sensation intact Results & Data ([facility]) Vital Signs (Past 12 Hours) Vital Signs Temp Pulse Resp BP Pulse Ox O2 Del Method 10/28/21 07:55 36.7 C 70 16 125/86 98 Room Air 10/28/21 02:35 36.6 C 55 L 14 124/86 97 Room Air 10/27/21 23:15 37 C 66 15 105/67 96 Room Air Laboratory Results Laboratory Results - last 72 hr 10/27/21 10/27/21 10/27/21 15:22 15:22 15:22 WBC 9.43 RBC 5.14 Hgb 15.8 Hct 47.7 H MCV 92.8 MCH 30.7 MCHC 33.1 RDW Std Deviation 42.4 RDW Coeff of Anisa 12.4 Plt Count 242 MPV 10.1 Immature Gran % (Auto) 0.4 Neut % (Auto) 69.1 Lymph % (Auto) 20.4 [place] % (Auto) 9.3 Eos % (Auto) 0.5 Baso % (Auto) 0.3 Neut # (Auto) 6.51 H Lymph # (Auto) 1.92 [place] # (Auto) 0.88 H Eos # (Auto) 0.05 Baso # (Auto) 0.03 Immature Gran # (Auto) 0.04 H PT 10.3 INR 1.0 APTT 31.2 H PTT Ratio 1.1 Sodium 138 Potassium 4.3 Chloride 106 Carbon Dioxide 24 Anion Gap 8 BUN 14 Creatinine 0.88 Est Cr Clr Drug Dosing 109.2 Est GFR ( Amer) 105.8 Est GFR (Non-Af Amer) 91.3 BUN/Creatinine Ratio 15.9 Glucose 142 H Lactate Calcium 9.1 Magnesium 2.0 Total Bilirubin 0.4 AST 14 ALT 15 Alkaline Phosphatase 107 H Total Protein 7.7 Albumin 4.1 Globulin 3.6 Albumin/Globulin Ratio 1.1 Procalcitonin Urine Color Urine Appearance Urine pH Ur Specific [place] Urine Protein Urine Glucose (UA) Urine Ketones Urine Blood Urine Nitrite Urine Bilirubin Urine Urobilinogen Ur Leukocyte Esterase Urine WBC (Auto) Urine RBC (Auto) U Hyaline Cast (Auto) U Epithel Cells (Auto) Urine Bacteria (Auto) SARS-CoV-2, RNA, NAAT 10/27/21 10/27/21 10/27/21 15:22 15: 15:22 WBC RBC Hgb Hct MCV MCH MCHC RDW Std Deviation RDW Coeff of Anisa Plt Count MPV Immature Gran % (Auto) Neut % (Auto) Lymph % (Auto) [place] % (Auto) Eos % (Auto) Baso % (Auto) Neut # (Auto) Lymph # (Auto) [place] # (Auto) Eos # (Auto) Baso # (Auto) Immature Gran # (Auto) PT INR APTT PTT Ratio Sodium Cancelled Cancelled Potassium Cancelled Cancelled Chloride Cancelled Cancelled Carbon Dioxide Cancelled Cancelled Anion Gap Cancelled Cancelled BUN Cancelled Cancelled Creatinine Cancelled Cancelled Est Cr Clr Drug Dosing Cancelled Cancelled Est GFR ( Amer) Cancelled Cancelled Est GFR (Non-Af Amer) Cancelled Cancelled BUN/Creatinine Ratio Cancelled Cancelled Glucose Cancelled Cancelled Lactate Calcium Cancelled Cancelled Magnesium Total Bilirubin Cancelled Cancelled AST Cancelled Cancelled ALT Cancelled Cancelled Alkaline Phosphatase Cancelled Cancelled Total Protein Cancelled Cancelled Albumin Cancelled Cancelled Globulin Cancelled Cancelled Albumin/Globulin Ratio Cancelled Cancelled Procalcitonin Urine Color Yellow Urine Appearance Cloudy A Urine pH 5.5 Ur Specific [place] 1.020 Urine Protein 1+ H Urine Glucose (UA) Negative Urine Ketones Trace H Urine Blood 3+ H Urine Nitrite Positive A Urine Bilirubin Negative Urine Urobilinogen Negative Ur Leukocyte Esterase 2+ H Urine WBC (Auto) >30 H Urine RBC (Auto) 10-30 H U Hyaline Cast (Auto) 1-5 U Epithel Cells (Auto) 20-30 H Urine Bacteria (Auto) 4+ H SARS-CoV-2, RNA, NAAT 10/27/21 10/27/21 10/27/21 15:22 16:36 16:36 WBC RBC Hgb Hct MCV MCH MCHC RDW Std Deviation RDW Coeff of Anisa Plt Count MPV Immature Gran % (Auto) Neut % (Auto) Lymph % (Auto) [place] % (Auto) Eos % (Auto) Baso % (Auto) Neut # (Auto) Lymph # (Auto) [place] # (Auto) Eos # (Auto) Baso # (Auto) Immature Gran # (Auto) PT INR APTT PTT Ratio Sodium Potassium Chloride Carbon Dioxide Anion Gap BUN Creatinine Est Cr Clr Drug Dosing Est GFR ( Amer) Est GFR (Non-Af Amer) BUN/Creatinine Ratio Glucose Lactate 0.5 Calcium Magnesium Total Bilirubin AST ALT Alkaline Phosphatase Total Protein Albumin Globulin Albumin/Globulin Ratio Procalcitonin 0.38 Urine Color Urine Appearance Urine pH Ur Specific [place] Urine Protein Urine Glucose (UA) Urine Ketones Urine Blood Urine Nitrite Urine Bilirubin Urine Urobilinogen Ur Leukocyte Esterase Urine WBC (Auto) Urine RBC (Auto) U Hyaline Cast (Auto) U Epithel Cells (Auto) Urine Bacteria (Auto) SARS-CoV-2, RNA, NAAT NEGATIVE 10/28/21 10/28/21 05:46 05:46 WBC 5.98 RBC 4.50 Hgb 13.7 Hct 41.5 MCV 92.2 MCH 30.4 MCHC 33.0 RDW Std Deviation 42.3 RDW Coeff of Anisa 12.4 Plt Count 204 MPV 10.0 Immature Gran % (Auto) 0.2 Neut % (Auto) 50.5 Lymph % (Auto) 35.3 [place] % (Auto) 11.7 Eos % (Auto) 1.8 Baso % (Auto) 0.5 Neut # (Auto) 3.02 Lymph # (Auto) 2.11 [place] # (Auto) 0.70 Eos # (Auto) 0.11 Baso # (Auto) 0.03 Immature Gran # (Auto) 0.01 PT INR APTT PTT Ratio Sodium 139 Potassium 4.5 Chloride 110 H Carbon Dioxide 24 Anion Gap 5 BUN 10 Creatinine 0.71 Est Cr Clr Drug Dosing 135.4 Est GFR ( Amer) 137.2 Est GFR (Non-Af Amer) 118.4 BUN/Creatinine Ratio 14.1 Glucose 81 Lactate Calcium 7.8 L Magnesium Total Bilirubin 0.3 AST 10 L ALT 8 Alkaline Phosphatase 83 Total Protein 6.1 D Albumin 3.3 L Globulin 2.8 Albumin/Globulin Ratio 1.2 Procalcitonin Urine Color Urine Appearance Urine pH Ur Specific [place] Urine Protein Urine Glucose (UA) Urine Ketones Urine Blood Urine Nitrite Urine Bilirubin Urine Urobilinogen Ur Leukocyte Esterase Urine WBC (Auto) Urine RBC (Auto) U Hyaline Cast (Auto) U Epithel Cells (Auto) Urine Bacteria (Auto) SARS-CoV-2, RNA, NAAT
[2021-10-28] MEDS ORDERED: IBUPROFEN 600 MG TAB PO PRN (10:26)
[2021-10-28] MEDS: GENTAMICIN SULFATE 400 MG in DEXTROSE 5% 100 ML IV SCH (17:55)
--- NOTE | 2021-11-02 12:12 | Discharge Summary (DS) ---
DATE OF ADMISSION: 10/27/2021 DATE OF DISCHARGE: 10/28/2021 REASON FOR ADMISSION AND HOSPITAL COURSE: The patient is a 26-year-old G2, P2-0-0-2, status post unc omplicated on 10/14, presents with fever, pain to the ER. A diagnosis of endometritis was then made. She was started on Rocephin in the ER and then was continued on IV antibiotics. She was discharged pain free, abdominal pain had subsided. Her white count was normal on discharge a nd she was discharged home on p.o. antibiotics. She will be seen in the office in one week. Regular diet on discharge. Condition on discharge is stable. DIAGNOSIS: endometritis. Job ID: [id number]
== END 2021-10-28 19:16 | disposition home or self-care (01) | DRG 776 ==
LOC: ED 14:48 → 4E1 17:19